=== PATIENT | female | born 1955 | race Caucasian/White ===

== ENCOUNTER 2017-11-27 11:30 | Outpatient (REF) | payer BC, OTHER, SELFPAY ==
[2017-11-27 21:53] LABS: TSH 1.77 uIU/mL (0.358-3.74)
== END 2017-11-27 11:50 ==
LOC: NCHCN 11:30
PROVIDERS: PCP Internal Medicine; Visit Provider Internal Medicine
DX: L65.9 Nonscarring hair loss, unspecified (principal); R53.83 Other fatigue
CPT/HCPCS: 84443

== ENCOUNTER 2018-03-26 15:41 | Emergency (ER) | payer BC, OTHER, SELFPAY ==
[2018-03-26 15:41] VITALS: BP 138/77; PULSE 97; RESP 16; TEMP 36.7; O2SAT 98
--- NOTE | 2018-03-26 15:45 | ED.GENADUL_ITS ---
Discharge Plan Disposition Patient Disposition: [facility] Condition: Stable Discharge Details Chief Complaint: Orthopedic Clinical Impression: Post-operative complication, Dehiscence of surgical wound Reason For Visit: MARTÍNEZ Primary Care Provider: Joseluis Clayton ED Provider: Bruno Mensah Home Meds and New Rx's Prescriptions: No Action Atorvastatin Calcium 20 MG tablet 20 mg PO DAILY RF: 0 cyclobenzaprine 10 MG tablet 10 mg PO TID RF: 0 venlafaxine 75 MG capsule,extended release 24hr 225 mg PO DAILY RF: 0 lisinopril 10 MG tablet 10 mg PO DAILY RF: 0 omeprazole 20 MG capsule,delayed release(DR/EC) 40 mg PO BID RF: 0 hydrochlorothiazide 25 MG tablet 25 mg PO DAILY RF: 0 mirtazapine 15 MG tablet,disintegrating 15 mg PO DAILY RF: 0 topiramate 50 MG tablet 50 mg PO DAILY RF: 0 omega-3 fatty acids-fish oil [Fish Oil] 1 EACH capsule 1 ea PO DAILY RF: 0 naproxen sodium 220 MG capsule 440 mg PO BID RF: 0 [id number]-lgq-trft-FA-vit K [Multi-Day Plus Minerals] 1 EACH tablet 1 ea PO DAILY RF: 0 Medical Decision Making This is a 62-year-old female who presents for dehiscence of her right knee after she had bilateral knee replacement. She is on Eliquis for DVT prophylaxis. This occurred roughly 1 hour prior to arrival. Upon arrival she demonstrates evidence of a 14 cm dehisced incision site in the right knee. No significant active bleeding at this time. Distally she demonstrates intact capillary refill, intact pulses intact sensation and movement. Tetanus is up-to-date, today we are giving 2 g of Ancef at this time. I did contact [facility] and discussed the case with the orthopedic surgeon Dr. Paniagua and the ER attending Dr. Batista, they recommend transfer to [facility] emergency department for further management as it was then who performed the case and they would like to maintain control of the case at this time. Portable x-ray shows no signs of severe fracture. Ancef has been given. Patient will be transferred by [facility] to [facility]. I have extensively reviewed the treatment plan with the patient. I have addressed all patient concerns at this time. I have also discussed the plan with the admitting physician and they agree with the current assessment and plan and have agreed to assume responsibility for the patient. All parties demonstrate verbal understanding and agreement with our assessment and plan at this time. HPI General Date/Time Provider Initiated Documentation: 03/26/18 15:43 . HPI Narrative: This is a 62-year-old female with a past medical history of high cholesterol, high blood pressure, who had a bilateral knee replacement on March 14 which was 12 days ago, this is done at [facility] by Dr. Bhardwaj and Dr. Serrato, she had been doing well, she was placed on Eliquis prophylactically for blood clots, unfortunately today she was walking and tripped and landed on her right knee. He had complete dehiscence of the knee. She immediately called 911 for evaluation. She is able to move the knee but does have some pain secondary to the dehiscence. Patient denies any pain proximally or distally. She denies any numbness or tingling. She denies any other complaints or modifying factors at this time. She did not hit her head. She had no loss of consciousness. Related Data Home Medications Medication Instructions Recorded Confirmed Atorvastatin Calcium 20 mg PO DAILY tab-cap 09/26/17 cyclobenzaprine 10 mg PO TID tab-cap 09/26/17 hydrochlorothiazide 25 mg PO DAILY tab-cap 09/26/17 lisinopril 10 mg PO DAILY tab-cap 09/26/17 mirtazapine 15 mg PO DAILY tab-cap 09/26/17 [id number]-dgj-[id number]-FA-vit K 1 ea PO DAILY 09/26/17 [Multi-Day Plus Minerals Tablet] naproxen sodium 440 mg PO BID 09/26/17 omega-3 fatty acids-fish oil [Fish 1 ea PO DAILY 09/26/17 Oil 1,000 Mg Capsule] omeprazole 40 mg PO BID tab-cap 09/26/17 topiramate 50 mg PO DAILY 09/26/17 venlafaxine 225 mg PO DAILY tab-cap 09/26/17 Allergies Allergy/AdvReac Type Severity Reaction Status Date / Time walnut Allergy Intermediate TONGUE Unverified 09/26/17 11:28 SWELLS acetaminophen [From Percocet] AdvReac Intermediate VOMITTING Unverified 09/26/17 11:28 oxycodone HCl [From Percocet] AdvReac Intermediate VOMITTING Unverified 09/26/17 11:28 DIAL SOAP AdvReac Mild Skin Rash Uncoded 09/26/17 11:28 Review of Systems Review of Systems All systems reviewed & are unremarkable except as noted in HPI and below Exam Narrative Exam Narrative: 1.Const: Well-nourished, Well-developed, appearing stated age 2.Eyes: PERRL, no conjunctival injection, and symmetrical lids. 3.ENT: Atraumatic external nose and ears. Moist MM. Neck: Symmetric, trachea midline, No thyromegaly. There is no evidence of raccoon eyes, blackman sign, CSF rhinorrhea, mastoid tenderness, cranial crepitus, hemotympanum, exophthalmos, or hyphema. Patient demonstrates intact dentition with no signs of tooth avulsion or fracture, no signs of jaw deformity, no evidence of a LeFort's fracture, with an intact palate, nose and orbital region. There is no evidence of a nasal septal hematoma. No proptosis. Jaw closes symmetrically. Airway is clear. 4.CVS: Regular rate and rhythm, Normal s1 and s2. No murmurs, carotid bruits, rubs, or gallops. Radial pulses 2+ bilaterally and symmetric. Dorsalis pedis pulses 2+ bilaterally and symmetric. 2+ capillary refill. No evidence of distant heart sounds. No extremity edema. No evidence of gross hemorrhage. 5.RESP: Airway clear, no obstructions. No abrasions or ecchymosis. Chest movement symmetric with respirations. No chest wall tenderness. Trachea midline. No crepitus. No step offs. No paradoxical movements. Lungs are clear to auscultation bilaterally. No rales, rhonchi, wheezing or stridor. Breath sound symmetric. No Sucking chest wounds. No clinical evidence of significant chest trauma. 6.GI: Soft, Nontender/Nondistended, No hepatosplenomegaly. No guarding or rebound. 7.MSK: Normocephalic left knee demonstrates postop incision site that is clean dry and intact, no evidence of dehiscence. No bleeding or discharge. No significant erythema. Right knee demonstrates total dehiscence of the incision. Dehisced lesion is 14 cm long and 6-4 cm wide. No evidence of active bleeding at this time. Mild oozing is present. Presence of artificial knee can be seen on exam. Distal pulses are +2 bilaterally, capillary refill is brisk in all toes. Patient demonstrates good flexion and extension of the knee, however it is slightly limited by pain. Good plantar and dorsiflexion of the right foot. 8.Skin: Warm, Dry. 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 Sensation grossly intact, no focal neurologic deficits. 10.Psych: (AAO) x3. Appropriate mood and affect
[2018-03-26] MEDS: MORPHine 10 MG/ML VIAL 4 MG IVP ×2 (16:04→16:53)
--- NOTE | 2018-03-26 16:04 | DI.RAD_ITS ---
SYMPTOM/DIAGNOSIS: ? FX PORTABLE RIGHT KNEE: AP and cross table lateral views were performed. The patient is status post placement of a right total knee prosthesis. The components appear well aligned. There is some anterior soft tissue swelling as well as residual post surgical air.
--- NOTE | 2018-03-26 16:19 | DI.VRAD_ITS ---
EXAM: XR Right Knee, 3 Views EXAM DATE/TIME: 03/26/2018 4:06 PM CLINICAL HISTORY: 62 years old, female; Signs and symptoms; Other: R/O FX; Prior surgery; Surgery date: 3-7 days post-operative; Surgery type: RT knee; Additional info: Fell in parking lot knee replacement on mar 14 TECHNIQUE: XR Right knee 3 views. COMPARISON: CR RIGHT KNEE 3 VIEWS 09/20/2017 12:33 PM FINDINGS: Bones/joints: Diffuse demineralization of the bones. Status post total knee arthroplasty. No evidence for loosening or fracture. Soft tissues: Postoperative changes in the soft tissue. IMPRESSION: Status post total knee arthroplasty with postoperative changes. Dictated and Authenticated by: Victor M Lala MD. Ordering:JOEY Carr MD
[2018-03-26] MEDS: Lactated Ringers 1,000 ML 125 ML IV (16:32)
[2018-03-26 16:45] VITALS: BP 147/81; PULSE 90; O2SAT 99
[2018-03-26 17:20] VITALS: BP 140/73; PULSE 98; RESP 16; TEMP 36.7; O2SAT 98
== END 2018-03-26 17:20 | disposition short-term general hospital (02) ==
LOC: ER 16:56
PROVIDERS: Emergency Provider Student in an Organized Health Care Education/Training Program; PCP Internal Medicine
DX: T81.31XA Disruption of external operation (surgical) wound, not elsewhere classified, initial encounter (principal); Z79.01 Long term (current) use of anticoagulants; Z96.651 Presence of right artificial knee joint; Z96.652 Presence of left artificial knee joint
CPT/HCPCS: 36415; 96361; 96365; 96375; 96376; 99285; 73560; 99284; J0690; J2270

== ENCOUNTER 2018-10-13 10:33 | Observation (INO) | payer MEDICARE, BC, OTHER, SELFPAY ==
[2018-10-13] VITALS (8 sets, daily range): BP systolic 92–151; BP diastolic 52–90; PULSE 73–85; RESP 8–17; TEMP 36–36.7; O2SAT 92–98
--- NOTE | 2018-10-13 10:54 | ED.GENADUL_ITS ---
Discharge Plan Disposition Patient Disposition: [facility] INPATIENT Condition: Stable Discharge Details Chief Complaint: Orthopedic Clinical Impression: Fracture subluxation of right ankle joint Admit Date/Time: 10/13/18 13:12 Admit Provider: Antonio Maciel Attending Provider: Antonio Maciel Primary Care Provider: Joseluis Clayton ED Provider: Stephenie Mueller Discharge Data Discharge Date/Time-TO BE ENTERED AT DEPARTURE: 10/13/18 14:55 Medical Decision Making 63-year-old female with a history of bilateral knee replacement with revision to right knee status post infection by Dr. Chaidez in [place] who presents with right ankle injury this morning when stepped into a ditch and inverted her ankle. She took Tylenol prior to arrival. She is neurovascular intact. There is moderate lateral malleolar edema and tenderness to palpation. No open wounds. No obvious deformity. Will give a dose of Motrin and sent for right ankle x-ray. Ankle x-ray notes a displaced fracture distal fibula with lateral subluxation of the talus with respect to the tibia. X-ray results discussed with Dr. Maciel. As patient ate at 830 this morning, will admit for possible planned surgery this evening. Screening labs, EKG and chest x-ray ordered. Patient accepted for admission by Dr. Maciel. Medical Records Medical records reviewed: Yes I reviewed the patient's medical records. Imaging Data Radiologic Study: Radiologist's impression: XR Right Ankle EXAM DATE/TIME: 10/13/2018 10:54 AM CLINICAL HISTORY: 63 years old, female; Pain; Right; Patient HX: S/P twisting ankle in ditch this morning. TECHNIQUE: Imaging protocol: XR Right ankle. Views: 3 or more views. COMPARISON: No relevant prior studies available. FINDINGS: Bones/joints: Displaced fracture in the distal fibula . Lateral subluxation of the talus with respect to the tibia. Soft tissues: Lateral malleolar soft tissue swelling. IMPRESSION: 1. Lateral malleolar soft tissue swelling. 2. Displaced fracture in the distal fibula. 3. Lateral subluxation of the talus with respect to the tibia Lab Data Lab results reviewed: Yes I reviewed the patient's lab results. ECG Data Attestation: I personally reviewed and interpreted this ECG (s) as follows: Interpretation: Rate of 73, sinus, no acute ST elevation or depression. QTc 430. QRS 78. HPI General Mode of arrival: wheelchair . Date/Time Provider Initiated Documentation: 10/13/18 10:53 . Limitations to Documentation: no limitations . Information obtained by: patient . HPI Narrative: Pt is a 63yo F who presents to the ED with complaint of right ankle injury after inverting her ankle when stepping into a hole while weeding today. She took Tylenol prior to arrival. She denies any injuries. She denies foot pain. Related Data Home Medications Medication Instructions Recorded Confirmed Atorvastatin Calcium 20 mg PO DAILY tab-cap 09/26/17 10/13/18 Fish Oil 1 ea PO DAILY 09/26/17 10/13/18 Multi-Day Plus Minerals 1 ea PO DAILY 09/26/17 10/13/18 cyclobenzaprine 10 mg PO .TID,PRN tab-cap 09/26/17 10/13/18 hydrochlorothiazide 25 mg PO DAILY tab-cap 09/26/17 10/13/18 lisinopril 10 mg PO DAILY tab-cap 09/26/17 10/13/18 naproxen sodium 440 mg PO BID 09/26/17 10/13/18 omeprazole 40 mg PO BID tab-cap 09/26/17 10/13/18 topiramate 50 mg PO DAILY 09/26/17 10/13/18 venlafaxine 225 mg PO DAILY tab-cap 09/26/17 10/13/18 hydrocodone-acetaminophen 1 tab PO Q6H PRN #20 tab 10/14/18 Previous Rx's Medication Instructions Recorded hydrocodone-acetaminophen 1 tab PO Q6H PRN #20 tab 10/14/18 Allergies Allergy/AdvReac Type Severity Reaction Status Date / Time walnut Allergy Intermediate TONGUE Unverified 10/13/18 10:46 SWELLS oxycodone HCl [From Percocet] AdvReac Intermediate VOMITTING Unverified 10/13/18 10:46 DIAL SOAP AdvReac Mild Skin Rash Uncoded 10/13/18 10:46 General Stated Complaint: Orthopedic CHRIS: 4 Review of Systems Review of Systems All systems reviewed & are unremarkable except as noted in HPI and below PFSH Medical History HTN (hypertension) (Chronic) Surgical History History of knee replacement (Chronic) Social History Smoking/Tobacco Use Status: Never Alcohol Intake: current Alcohol Intake frequency: holidays/special occasions only Alcohol type: hard liquor Drug use: Never Do you feel safe in your relationship?: Yes Exam Const General: cooperative, healthy appearing and no acute distress HENMT Head: normal to inspection Mouth: oral mucosae normal Eyes General: appearance normal, both eyes and all related structures Neck Neck: normal visual inspection Resp Effort & Inspection: normal respiratory effort and able to speak in complete sentences Cardio Rate: regular rate Skin General skin exam: no rashes or lesions noted Neuro General: alert, awake and oriented x3 Motor: muscle tone normal throughout Extrem Other: Right lateral malleolar tenderness to palpation and moderate edema. No right fifth metatarsal tenderness to palpation. Right DP/PT pulses intact. No tenderness to palpation of proximal fibula. Psych Appearance: grossly normal Affect: normal affect Course Vital Signs Temperature 97.5 F L 10/13/18 10:41 Pulse 85 10/13/18 10:41 Respiratory Rate 16 10/13/18 10:41 Blood Pressure 124/83 10/13/18 10:41 Pulse Oximetry 97 10/13/18 10:41 Temperature 97.5 F L 10/13/18 10:41 Temperature Source Skin 10/13/18 10:41 Pulse 85 10/13/18 10:41 Respiratory Rate 16 10/13/18 10:41 Respiratory Effort Non-Labored 10/13/18 10:44 Blood Pressure 124/83 10/13/18 10:41 Pulse Oximetry 97 10/13/18 10:41 Pain Level 1 10/13/18 10:41
[2018-10-13] MEDS: Acetaminophen 325 MG TAB 650 MG PO (10:57)
--- NOTE | 2018-10-13 11:33 | DI.RAD_ITS ---
SYMPTOM/DIAGNOSIS: S/P TWISTING INJURY IN DITCH, PAIN, PREOP, ANKLE FX FLUOROSCOPY RIGHT ANKLE: Fluoroscopy Time: 22.0 seconds Fluoroscopy was provided in the OR for Dr. Maciel. Hard copy images show placement of a lateral malleolar fixation plate and mortise screw. The alignment appears satisfactory. RIGHT ANKLE: There is marked lateral soft tissue swelling. There is a fracture seen extending obliquely through the lateral malleolus to the level of the ankle mortise. There is mild widening of the ankle mortise medially but no medial malleolar fracture. The talar dome appears intact. IMPRESSION: Lateral malleolar fracture and ankle mortise widening. AP AND LATERAL CHEST: The AP view is limited by patient body habitus and positioning. Abdominal soft tissues overlie the lung bases. There is minimal atelectasis or scarring at the right lung base anteriorly. No effusions are seen. IMPRESSION: No acute abnormality.
--- NOTE | 2018-10-13 11:54 | DI.VRAD_ITS ---
EXAM: XR Right Ankle EXAM DATE/TIME: 10/13/2018 10:54 AM CLINICAL HISTORY: 63 years old, female; Pain; Right; Patient HX: S/P twisting ankle in ditch this morning. TECHNIQUE: Imaging protocol: XR Right ankle. Views: 3 or more views. COMPARISON: No relevant prior studies available. FINDINGS: Bones/joints: Displaced fracture in the distal fibula . Lateral subluxation of the talus with respect to the tibia. Soft tissues: Lateral malleolar soft tissue swelling. IMPRESSION: 1. Lateral malleolar soft tissue swelling. 2. Displaced fracture in the distal fibula. 3. Lateral subluxation of the talus with respect to the tibia Dictated and Authenticated by: Richie Nam MD. Ordering:PATRIC Casiano MD
[2018-10-13] MEDS: Normal Saline 500 ML IV (13:37)
[2018-10-13] MEDS: MORPHine 10 MG/ML VIAL IVP ×2 (13:37→15:12)
--- NOTE | 2018-10-13 13:41 | NUR.NOTE ---
Nursing Note: Nurse grief counselor at bedside to discuss plan of care. Pt resting in stretcher, no signs of distress. facial expression and body language relaxed. slow and even respirations noted.
[2018-10-13 14:07] LABS: HCT 42.7 % (36.0-46.0); Mean Corp. HGB Concentration 32.8 g/dL (32.0-36.0); Mean Corpuscular Hemoglobin 27.9 pg (27.0-33.0); Mean Corpuscular Volume 85.2 fL (80-95); Mean Platelet Volume 8.8 fL (8.0-11.0); Platelet Count 235 x1000/uL (130-400); RBC 5.01 m/cumm (4.00-5.20); RBC Distribution Width 13.9 % (11.7-14.6); White Blood Cell Count 6.39 k/cumm (4.4-10.8)
[2018-10-13 14:16] LABS: Anion Gap 6.2 mmol/L (3-11); BUN 14 mg/dL (7-18); CO2 28.8 mmol/L (21.0-32.0); CREATININE 0.76 mg/dL (0.55-1.02); Calcium 8.5 mg/dL (8.5-10.1); Chloride 105 mmol/L (98-107); Glucose 90 mg/dL (70-100); Potassium 3.9 mmol/L (3.5-5.1); Sodium 140 mmol/L (136-145)
--- NOTE | 2018-10-13 14:43 | NUR.NOTE ---
Nursing Note:report given to Alyse FENG
--- NOTE | 2018-10-13 14:50 | NUR.NOTE ---
Nursing Note: Shorty splint applied to patient. Strong pedal pulse noted.
--- NOTE | 2018-10-13 14:54 | NUR.NOTE ---
Nursing Note: pt transported up stairs.
--- NOTE | 2018-10-13 15:02 | DI.VRAD_ITS ---
EXAM: XR Chest, 2 Views EXAM DATE/TIME: 10/13/2018 12:54 PM CLINICAL HISTORY: 63 years old, female; Other: RT ankle fracture, assess for disease, pre-op TECHNIQUE: Imaging protocol: XR of the chest, 2 views. COMPARISON: No relevant prior studies available. FINDINGS: Lungs: Opacity in the right base may represent atelectasis or pneumonia. Pleural space: Unremarkable. No pleural effusion. No pneumothorax. Heart/Mediastinum: Unremarkable. No cardiomegaly. Diaphragm: Elevated right hemidiaphragm Bones/joints: Unremarkable. IMPRESSION: Opacity in the right base may represent atelectasis or pneumonia. Dictated and Authenticated by: Richie Nam MD. Ordering:PATRIC Casiano MD
[2018-10-13] MEDS: Lactated Ringers 1,000 ML 200 ML IV ×2 (16:00→17:10)
--- NOTE | 2018-10-13 16:30 | NUR.NOTE ---
Nursing Note: Pt to floor from ER at 1456. A&Ox3, VSS. 1 assist to BR and stretcher. Pt requested splint to right ankle be removed; morphine 4mg IVP at 1520- 09/19 pain. at bedside. Pt oriented to MS floor, TV, call ash, etc. Call ash within reach. Pt to OR at 1543.
[2018-10-13] MEDS: Normal Saline 1,000 ML 125 ML IV (18:58)
[2018-10-13] MEDS: Ketorolac 30 MG/ML VIAL IVP (20:15)
[2018-10-13] MEDS: Docusate Sodium 100 MG CAP PO (20:45)
[2018-10-13] MEDS: Omeprazole 20 MG CAPCR 40 MG PO (20:45)
[2018-10-13] MEDS: ceFAZolin 2,000 MG in Normal Saline 100 ML 200 MG IVPB (22:58)
[2018-10-14 00:05] VITALS: BP 126/75; PULSE 99; RESP 19; TEMP 36.9; O2SAT 98
[2018-10-14] MEDS: Ketorolac 30 MG/ML VIAL IVP ×3 (00:53→11:56)
[2018-10-14] MEDS: ceFAZolin 2,000 MG in Normal Saline 100 ML 200 MG IVPB ×2 (04:14→10:33)
[2018-10-14 04:24] VITALS: BP 115/71; PULSE 82; RESP 18; TEMP 36.4; O2SAT 98
[2018-10-14] MEDS: Acetaminophen 325 MG TAB 650 MG PO ×2 (04:41→08:55)
[2018-10-14 07:55] VITALS: BP 120/72; PULSE 72; RESP 18; TEMP 36.9; O2SAT 99
[2018-10-14] MEDS: Topiramate 50 MG TAB PO (08:01)
[2018-10-14] MEDS: Docusate Sodium 100 MG CAP PO (08:01)
[2018-10-14] MEDS: hydroCHLOROthiazide 25 MG TAB PO (08:01)
[2018-10-14] MEDS: Omega-3 Fatty Acids 1000 MG CAP PO (08:01)
[2018-10-14] MEDS: Multivitamin TAB 1 TAB PO (08:01)
[2018-10-14] MEDS: Lisinopril 10 MG TAB PO (08:01)
[2018-10-14] MEDS: Omeprazole 20 MG CAPCR 40 MG PO (08:01)
[2018-10-14] MEDS: Atorvastatin 20 MG TAB PO (08:01)
[2018-10-14 08:03] VITALS: BP 120/72; PULSE 72; RESP 18; TEMP 36.9; O2SAT 99
[2018-10-14 08:28] VITALS: O2SAT 99
[2018-10-14] MEDS: Normal Saline 1,000 ML 60 ML IV (08:51)
--- NOTE | 2018-10-14 11:49 | W.PM.DS.N ---
Date of service: 10/14/18 Time of Service: 11:49 DS: Diagnosis Discharge Diagnosis (1) Trimalleolar fracture of right ankle: Status: Acute Discharge Plan Disposition Patient Disposition: HOME Condition: Stable Discharge Details Chief Complaint: Orthopedic Clinical Impression: Fracture subluxation of right ankle joint Reason For Visit: TRIMALLEOLAR FX R ANKLE Admit Date/Time: 10/13/18 13:12 Admit Provider: Antonio Maciel Attending Provider: Atnonio Maciel Primary Care Provider: Joseluis Clayton ED Provider: Stephenie Mueller Hospital Course Hospital Course: Patient was taken from the emergency room to the operating room on the day of admission 10/13/2018. I initially thought that she had a bimalleolar fracture equivalent. Using the C-arm fluoroscopy to visualize the ankle I determined that she had a trimalleolar fracture equivalent. This consisted of a rupture of the deltoid ligament fracture of the distal fibula proximal to the ankle joint and a small posterior malleolar fragment off the tibia. Posterior malleolar fragment is less than 10% of the articular surface of the distal tibia. The fracture was reduced anatomically and fixed with fibular plates and the syndesmotic screw through the plate. She was placed in a short leg Alexander dressing and a posterior fiberglass splint. She was comfortable through the night after surgery. On the day following surgery her pain was well controlled with occasional p.o. pain meds. She had already been up walking in the room with a walker. I felt she had achieved all acute care goals and was ready for discharge home. She was afebrile and eating well. Home Meds and New Rx's Prescriptions: New hydrocodone-acetaminophen 5-325 mg tablet 1 tab PO Q6H PRN (Reason: pain) Qty: 20 RF: 0 Continued Atorvastatin Calcium 20 MG tablet 20 mg PO DAILY RF: 0 cyclobenzaprine 10 MG tablet 10 mg PO .TID,PRN RF: 0 venlafaxine 75 MG capsule,extended release 24hr 225 mg PO DAILY RF: 0 lisinopril 10 MG tablet 10 mg PO DAILY RF: 0 omeprazole 20 MG capsule,delayed release(DR/EC) 40 mg PO BID RF: 0 hydrochlorothiazide 25 MG tablet 25 mg PO DAILY RF: 0 topiramate 50 MG tablet 50 mg PO DAILY RF: 0 Fish Oil 1 EACH capsule 1 ea PO DAILY RF: 0 naproxen sodium 220 MG capsule 440 mg PO BID RF: 0 Multi-Day Plus Minerals 1 EACH tablet 1 ea PO DAILY RF: 0 Discharge Instructions Additional Instructions: Elevate R ankle when sitting. Use walker to walk. Don't step on R foot. May rest splint on floor for balance when standing. Keep splint and dressings dry and intact until return. Return to 's office in 2 weeks. Take naprosyn or tylenol for mild pain. Take hydrocodone for breakthru pain, if needed. Referrals: Antonio Maciel MD [ [facility] STAFF PHYSICIAN] - (f/u in 2 weeks. Call office tomorrow to make appt. ([phone] Activity:: Activity as Tolerated Equipment/Supplies:: Walker Diet:: As Tolerated Discharge Orders Discharge Orders: Discharge Order (Routine); Ordered 10/14/18 Ordered By: Antonio Maciel DS: Data Vitals/I&O Vitals and I&O: Vital Signs Temperature 36.9 C 10/14/18 08:03 Temperature Source Tympanic 10/14/18 08:03 Pulse 72 10/14/18 08:03 Pulse Rhythm Regular 10/14/18 07:56 Respiratory Rate 18 10/14/18 08:03 Respiratory Effort Non-Labored 10/14/18 07:56 Respiratory Depth Normal 10/14/18 07:56 Respiratory Pattern Normal 10/14/18 07:56 Blood Pressure 120/72 10/14/18 08:03 Pulse Oximetry 99 10/14/18 08:28 Respiratory End-tidal CO2 34 10/13/18 18:45 Oxygen Delivery Method Room Air 10/14/18 08:28 Oxygen Flow Rate 0 10/14/18 08:28 Pain Level 3 10/14/18 08:55 Intake & Output 10/13/18 10/13/18 10/14/18 11:59 23:59 11:59 Intake Total 3028.333 / 3028.333 1091.667 / 1091.667 Output Total 720 / 720 800 / 800 Balance 2308.333 / 2308.333 291.667 / 291.667 Weight 90.718 kg 90.718 kg Intake: IV 3028.333 / 3028.333 691.667 / 691.667 Oral 400 / 400 Output: Urine 700 / 700 800 / 800 Estimated Blood Loss Other: Urine Color Yellow Yellow Urine Appearance Clear Clear Emesis Description None Voiding Methods Bedside Commode Bedside Commode Labs on day of discharge: Labs from last 24 hours 10/13/18 10/13/18 10/13/18 13:53 13:53 13:53 WBC 6.39 RBC 5.01 Hgb 14.0 Hct 42.7 MCV 85.2 MCH 27.9 MCHC 32.8 RDW 13.9 Plt Count 235 MPV 8.8 Sodium 140 Potassium 3.9 Chloride 105 Carbon Dioxide 28.8 Anion Gap 6.2 BUN 14 Creatinine 0.76 Estimated GFR/1.73 m2 >= 60.00 Glucose 90 Calcium 8.5 Patient ABO/Rh O Positive Antibody Screen Negative [facility] Medical History HTN (hypertension) (Chronic) Surgical History History of knee replacement (Chronic) Social History Smoking/Tobacco Use Status: Never Alcohol Intake: current Alcohol Intake frequency: holidays/special occasions only Alcohol type: hard liquor Drug use: Never Do you feel safe in your relationship?: Yes
[2018-10-14] MEDS: Normal Saline Flush 10 ML SYR IVP (11:56)
--- NOTE | 2018-10-15 10:17 | ROE_ITS ---
DATE OF PROCEDURE: October 13, 2018 PREOPERATIVE DIAGNOSIS: Bimalleolar fracture of the right ankle. POSTOPERATIVE DIAGNOSIS: Trimalleolar fracture equivalent, right ankle. PROCEDURE: ORIF of trimalleolar fracture equivalent, right ankle. ANESTHESIA: General, Yuniel Romero CRNA SURGEON: Antonio Maciel M.D. LEASING SALES CONSULTANT: Nesha Salinas INDICATIONS: This is a 63-year-old white female who stepped into a ditch in her garden when she sust ained an inversion injury to her ankle. She went to the Emergency Room where x-rays showed a fractur e of the distal fibula proximal to the ankle joint level with some medial joint space widening seen. The x-rays were really suboptimal and it was hard to see if there was a posterior malleolar fracture fragment. I felt that she did in fact have medial space narrowing and recommended open reduction an d internal fixation and optimum treatment to restore the ankle mortise joint. The risks and complica tions of the procedure were explained to the patient in detail preoperatively. PROCEDURE: The patient was taken to the Operating Room on 10/13/18. After an unsuccessful attempt at spinal anesthesia, it was decided to have a general anesthesia. The patient was placed supine on the operating table and a general anesthetic was administered. A proximal tourniquet was applied to the right thigh. I then put the leg on folded blankets and performed a gravity external stress to the a nkle. An AP view of the ankle was then obtained with the C-arm and it confirmed widening of the ankl e mortise. In addition, I rotated the ankle and got a true lateral of the ankle and it showed a smal l posterior malleolar fracture fragment off the tibia. It was felt that this was small enough that i t did not need fixation. At this point the right foot, ankle and lower leg were prepped and draped free in the usual sterile f ashion. Under proximal tourniquet control I made a short curved incision over the medial aspect of t he ankle joint. The incision was about three inches in length. The saphenous vein was identified an d was retracted medially. I made an incision in the anterior capsule and could clearly see the ankle mortise subluxed. I irrigated the joint with saline solution. No bony fragments were seen. Under direct vision I was able to reduce the talus, confirming that there was nothing blocking reduction on the medial side of the talus. Attention was then turned to the lateral side. A straight lateral incision was made beginning at the tip of the fibula and extending proximally abou t 6 to 7 inches. The incision was carried down through the skin and subcu, down to the fibula. The fracture site was identified. The edges of the main fracture line was with a [place] elevato r and then the fracture site itself was irrigated with saline solution and a small curette was used t o remove periosteum and fracture hematoma that could prevent reduction. I then was able to obtain an anatomic reduction using a self-centering towel clip applied from anterior to posterior. I then use d the C-arm to visualize the ankle. With the single self-centering towel clip in place, the ankle mo rtise was anatomically reduced, as was the fractured fibula. I then secured the fibular fracture wit h an 8-hole, one-third tubular plate. Locking screws were placed in the distal three holes in the pl ate. Non-locking 3.5 cortical screws were placed in the proximal three holes. I placed a 4-hole can cellous syndesmotic screw, tri-cortical, through the plate to further support the ankle mortise. An anatomic reduction was obtained. The wounds were then irrigated with Betadine and saline solution an d the wound margins were infiltrated with 0.25% Marcaine with an epinephrine solution. On the medial side, the capsular incision was approximated with a couple of interrupted gzywna-ez-tjsft sutures of #1 Vicryl suture material. The skin and subcu were approximated with uzmn-aym-qsq-near interrupted sutures of #3-0 Nylon. On the lateral side, the peroneal fascia was approximated over the plate and fibula with an interlocked, running #1 Vicryl suture. The skin and subcu were then approximated with out tension using ifjf-usa-pwi-near sutures of #3-0 Nylon interrupted. The wounds were dressed with Xeroform gauze, sterile gauze 4x4, ABD pads and wrapped with a Kerlix bandage. I then placed a short -leg Alexander compressive dressing. I followed that by placing a short-leg posterior fiberglass splint over the Alexander dressing, held down with TWAN bandages. The ankle was positioned in neutral dorsiflexi on. The tourniquet was released; there was no breakthrough bleeding to the dressings. Blood loss wa s minimal due to tourniquet use. The patient's anesthesia was reversed without complication. She wa s discharged to recovery in good condition.
== END 2018-10-14 12:51 | disposition home or self-care (01) ==
LOC: ER 13:25 → MS 15:05
PROVIDERS: Admitting Provider Orthopaedic Surgery; Emergency Provider Physician Assistant; PCP Internal Medicine; Visit Provider Orthopaedic Surgery
PROC: 0QSG0ZZ Reposition Right Tibia, Open Approach (ICD-10-PCS; CPT 27814; principal; 2018-10-13 14:35)
DX: S82.61XA Displaced fracture of lateral malleolus of right fibula, initial encounter for closed fracture (principal); S82.891A Other fracture of right lower leg, initial encounter for closed fracture; S93.421A Sprain of deltoid ligament of right ankle, initial encounter; X50.1XXA Overexertion from prolonged static or awkward postures, initial encounter
CPT/HCPCS: 27814; 27829; C1713; 36415; 80048; 85027; 86850; 86900; 86901; 96361; 96374; 96375; 99285; NC; 71046; 73600; 73610; 99284; G0378; J0690; J1100; J1885; J2250; J2270; J2405; J3010

== ENCOUNTER → 2018-10-30 09:11 | Outpatient (CLI) | payer MEDICARE, BC, OTHER, SELFPAY ==
--- NOTE | 2018-10-30 09:00 | DI.RAD_ITS ---
SYMPTOM/DIAGNOSIS: F/U RIGHT ANKLE: 10/30 Three views were obtained and show plate and screw fixation of the distal fibula with a femorotibial fixation screw in place as well. Alignment appears unchanged in comparison with intraoperative films of 10/13/18.
== END ==
PROVIDERS: PCP Internal Medicine; Referring Provider Internal Medicine; Visit Provider Orthopaedic Surgery
DX: S82.851A Displaced trimalleolar fracture of right lower leg, initial encounter for closed fracture (principal); X58.XXXA Exposure to other specified factors, initial encounter
CPT/HCPCS: L4361; 73610

== ENCOUNTER 2018-11-27 10:53 | Outpatient (CLI) | payer MEDICARE, BC, OTHER, SELFPAY ==
--- NOTE | 2018-11-27 09:16 | DI.RAD_ITS ---
EXAM: XR ANKLE RT COMPLETE INDICATION: F/U COMPARISON: XR ANKLE RT COMPLETE from 10/30/2018 TECHNIQUE: 2D digital imaging was performed. FINDINGS: Images of the right ankle are compared with a prior study of 10/30. There has been no change in the st atus of the orthopedic hardware fixation of the distal fibula. A right tibial fixation screw is aga in noted. IMPRESSION:
== END 2018-11-27 11:13 ==
PROVIDERS: PCP Internal Medicine; Visit Provider Orthopaedic Surgery
DX: S82.851A Displaced trimalleolar fracture of right lower leg, initial encounter for closed fracture (principal); X58.XXXA Exposure to other specified factors, initial encounter
CPT/HCPCS: 73610; L1902

== ENCOUNTER 2018-12-25 13:00 | Outpatient (CLI) | payer MEDICARE, BC, OTHER, SELFPAY ==
--- NOTE | 2018-12-25 10:07 | DI.RAD_ITS ---
EXAM: XR ANKLE RT COMPLETE INDICATION: f/u. COMPARISON: XR ANKLE RT COMPLETE from 11/27/2018 TECHNIQUE: 2D digital imaging was performed. FINDINGS: Three views were obtained and show plate and screw fixation of the distal fibula and tibial fibular j oint. The ankle mortise appears well maintained. No change in alignment in comparison with examinat ion November 27. IMPRESSION:
== END 2018-12-25 13:20 ==
PROVIDERS: PCP Internal Medicine; Referring Provider Internal Medicine; Visit Provider Orthopaedic Surgery
DX: S82.851D Displaced trimalleolar fracture of right lower leg, subsequent encounter for closed fracture with routine healing (principal); X58.XXXD Exposure to other specified factors, subsequent encounter
CPT/HCPCS: 73610

== ENCOUNTER 2019-10-20 14:09 | Emergency (ER) | payer MEDICARE, BC, OTHER, SELFPAY ==
--- NOTE | 2019-10-20 14:15 | DI.RAD_ITS ---
EXAM: XR ANKLE LT COMPLETE CLINICAL HISTORY: twist/fall TECHNIQUE: 2D digital imaging was performed. COMPARISON: No exams were available for comparison FINDINGS: BONES: Minimally displaced oblique fracture of the distal fibula. A nondisplaced posterior malleolar fracture cannot be excluded. No bony destructive lesion is seen. JOINTS:Mild widening of the medial ankle mortise. SOFT TISSUE: Soft tissue swelling of the ankle particularly laterally. IMPRESSION: 1. Distal fibular fracture as described. 2. Possible posterior malleolar fracture. 3. Mild lateral displacement of the ankle mortise. DATA REPOSITORY: RADIATION DOSE DELIVERED:
[2019-10-20 14:17] VITALS: BP 139/96; PULSE 92; RESP 18; TEMP 36.7; O2SAT 97
--- NOTE | 2019-10-20 14:22 | W.ED.GENAD ---
Discharge Plan Disposition Patient Disposition: HOME Condition: Stable Discharge Details Chief Complaint: Orthopedic Clinical Impression: Bimalleolar ankle fracture Primary Care Provider: Joseluis Clayton ED Provider: Ever Govea Home Meds and New Rx's Prescriptions: New hydrocodone-acetaminophen 5-325 mg tablet 1 tab PO Q8H PRNQty: 8 RF: 0 Continued Atorvastatin Calcium 20 MG tablet 20 mg PO DAILY RF: 0 cyclobenzaprine 10 MG tablet 10 mg PO .TID,PRN RF: 0 venlafaxine 75 MG capsule,extended release 24hr 225 mg PO DAILY RF: 0 lisinopril 10 MG tablet 10 mg PO DAILY RF: 0 omeprazole 20 MG capsule,delayed release(DR/EC) 40 mg PO BID RF: 0 hydrochlorothiazide 25 MG tablet 25 mg PO DAILY RF: 0 topiramate 50 MG tablet 50 mg PO DAILY RF: 0 Fish Oil 1 EACH capsule 1 ea PO DAILY RF: 0 Multi-Day Plus Minerals 1 EACH tablet 1 ea PO DAILY RF: 0 cholecalciferol (vitamin D3) [Vitamin D3] 25 mcg (1,000 unit) Capsule 25 mcg PO DAILY RF: 0 calcium carbonate-vitamin D3 [Calcium 500 With D] 500 mg(1,250mg) -400 unit Tablet 1 tab PO DAILY RF: 0 Discharge Instructions Instructions: Ankle Fracture (ED) Additional Instructions: Vicodin as directed, may cause drowsiness and/or constipation. Rest, elevate, cool compresses every 2 hours for 20 minutes. Wear postop shoe and use crutches until reevaluation with orthopedics, no weightbearing until then. Please watch for new or worsening symptoms and return to the ER for any concerns. I personally spoke with Dr. Ferrer who is aware of your case. Please contact his office tomorrow for prompt outpatient reevaluation. Referrals: Stephen Ferrer MD [ [facility] STAFF PHYSICIAN] - Discharge Data Discharge Date/Time-TO BE ENTERED AT DEPARTURE: 10/20/19 15:21 Medical Decision Making This is a 64-year-old female with history of hypertension, GERD, presenting to the ER today after having missed a step, stepping awkwardly off of her deck and twisting her left ankle. She reports the pain is moderate at rest, worse with attempting to move or bear weight, unable to bear weight completely. She reports that it feels like she sprained her right foot, does not want an x-ray of that foot. She did not strike her head, denies any other injury. There appears to be no distracting injuries. She appears well, no acute distress. Neuro, vascular, tendon intact. Will obtain x-ray of the left ankle and reassess. Patient has an allergy to Percocet, and can take Vicodin, 1 tablet given. X-ray of left ankle read by me as a distal fibula fracture, question of bimalleolar fracture. Awaiting official read. Virtual radiology read the x-ray as a left distal tibial fracture with what appeared to be a posterior malleolar fracture and mild mortise widening. I discussed the case and x-ray with Dr. Ferrer. He recommends immobilization, crutches, nonweightbearing, analgesia, and he will be happy to follow the patient in his office this week. Patient prefers a walking boot versus a Ortho-Glass posterior splint. Dr. Ferrer is okay with this. Walking boot applied, crutches with teaching given. Patient was able to safely use crutches. Neuro, vascular, tendon intact upon discharge. I did place the patient on the orthopedic callback list and gave the patient Dr. Ferrer's name and number so she could contact their office tomorrow for prompt outpatient reevaluation. Patient was educated in elevation, resting, cool compresses, the importance of outpatient follow-up, and encouraged to return to the ER for new or evolving symptoms. Upon discharge patient had no additional questions or concerns. Medical Records Medical records reviewed: Yes I reviewed the patient's medical records. Imaging Data Radiologic Study: Attestation: I personally reviewed and interpreted this imaging study as follows: Imaging: X-Ray Radiologist's impression: Left ankle x-ray read by virtual radiology has a distal fibular fracture and possible posterior malleolar fracture with mild lateral displacement of the ankle mortise HPI General Mode of arrival: ambulatory. Date/Time Provider Initiated Documentation: 10/20/19 14:21. Limitations to Documentation: no limitations. Information obtained by: patient. HPI Narrative: This is a 64-year-old female who reports a mechanical slip and fall coming off of her porch to the ground, stepped awkwardly twisting her left ankle and falling to the ground. She reports the pain is moderate. She is unable to bear weight on the left ankle. Reports mild pain of the right foot but able to bear weight. She denies striking her head, headache, neck pain, chest pain, pain in her upper extremities, abdominal pain, back pain, numbness, tingling, weakness. She is concerned that she may have broken her left ankle. Does not want an x-ray of her right foot. Related Data Home Medications Medication Instructions Recorded Confirmed Atorvastatin Calcium 20 mg PO DAILY tab-cap 09/26/17 10/20/19 Fish Oil 1 ea PO DAILY 09/26/17 10/20/19 Multi-Day Plus Minerals 1 ea PO DAILY 09/26/17 10/20/19 cyclobenzaprine 10 mg PO .TID,PRN tab-cap 09/26/17 10/20/19 hydrochlorothiazide 25 mg PO DAILY tab-cap 09/26/17 10/20/19 lisinopril 10 mg PO DAILY tab-cap 09/26/17 10/20/19 omeprazole 40 mg PO BID tab-cap 09/26/17 10/20/19 topiramate 50 mg PO DAILY 09/26/17 10/20/19 venlafaxine 225 mg PO DAILY tab-cap 09/26/17 10/20/19 calcium carbonate-vitamin D3 1 tab PO DAILY 10/20/19 10/20/19 [Calcium 500 With D] cholecalciferol (vitamin D3) 25 mcg PO DAILY 10/20/19 10/20/19 [Vitamin D3] hydrocodone-acetaminophen 1 tab PO Q8H PRN #8 tab 10/20/19 Previous Rx's Medication Instructions Recorded hydrocodone-acetaminophen 1 tab PO Q8H PRN #8 tab 10/20/19 Allergies Allergy/AdvReac Type Severity Reaction Status Date / Time walnut Allergy Intermediate TONGUE Verified 10/20/19 14:14 SWELLS oxycodone HCl [From Percocet] AdvReac Intermediate VOMITTING Verified 10/20/19 14:14 DIAL SOAP AdvReac Mild Skin Rash Uncoded 10/20/19 14:14 General Stated Complaint: Orthopedic CHRIS: 3 Review of Systems All systems reviewed & are unremarkable except as noted in HPI and below Constitutional Constitutional: Denies headache(s) and Denies weakness ENT Ears, Nose, Mouth, and Throat: Denies headache(s) and Denies neck pain Cardiovascular Cardiovascular: Denies chest pain and Denies dyspnea Respiratory Respiratory: Denies dyspnea Gastrointestinal Gastrointestinal: Denies nausea and Denies vomiting Musculoskeletal Musculoskeletal: Reports arthralgias, Reports joint swelling, Denies neck pain, Denies numbness and Denies tingling Integumentary/Breasts Skin/Breast: Denies rash Neurologic Neurologic: Denies headache(s), Denies numbness, Denies tingling and Denies weakness [facility] Medical History HTN (hypertension) (Chronic) Surgical History History of knee replacement (Chronic) Social History Smoking/Tobacco Use Status: Never Alcohol Intake: current Alcohol Intake frequency: holidays/special occasions only Alcohol type: hard liquor Drug use: Never Do you feel safe at home: Yes Do you feel safe in your relationship?: Yes Exam Const General: cooperative, healthy appearing, comfortable and no acute distress Orientation: alert, awake and oriented x3 HENMT Head: normal to inspection, normocephalic and atraumatic Face and sinus: normal facial exam Mouth: moist mucous membranes Eyes General: appearance normal, both eyes and all related structures Conjunctivae: conjunctivae normal Sclera: sclerae normal Neck Neck: normal visual inspection, full ROM, trachea midline, supple and nontender Resp Effort & Inspection: normal respiratory effort and able to speak in complete sentences Auscultation: clear to auscultation bilaterally Cardio Rate: regular rate Rhythm: regular rhythm Back/Spine/Pelvis Back: No back tenderness Skin General skin exam: no rashes or lesions noted Neuro General: patient alert, patient awake, moves all extremities and no focal motor deficits Cognition: normal cognition Speech: speech normal Motor: muscle tone normal throughout and strength 5/5 throughout Sensory Exam: no sensory deficits noted Extrem Right upper extremity: normal to inspection, full ROM and normal capillary refill Left upper extremity: normal to inspection, full ROM and normal capillary refill Right lower extremity: normal to inspection, full ROM, normal capillary refill and foot Details: normal capillary refill, normal to inspection and tenderness Location: of the dorsal foot (Mid-lateral, mild in nature. No bony point tenderness) Left lower extremity: normal capillary refill, hip/thigh Details: normal to inspection; no tenderness, knee Details: normal to inspection; no tenderness, lower leg Details: normal to inspection; no tenderness, ankle Details: abnormal to inspection, tenderness Location: of the lateral malleolus, swelling Details: laterally, abnormal ROM (Limited secondary to discomfort) and ecchymosis (Lateral malleolus) and foot Details: normal capillary refill and normal to inspection; no tenderness Psych Appearance: grossly normal Mental Status: mental status grossly normal Course Vital Signs Vital signs: Vital Signs Temperature 36.7 C 10/20/19 14:17 Pulse 92 H 10/20/19 14:17 Respiratory Rate 18 10/20/19 14:17 Blood Pressure 139/96 H 10/20/19 14:17 Pulse Oximetry 97 10/20/19 14:17 Temperature 36.7 C 10/20/19 14:17 Temperature Source Temporal Artery Scan 10/20/19 14:17 Pulse 92 H 10/20/19 14:17 Respiratory Rate 18 10/20/19 14:17 Blood Pressure 139/96 H 10/20/19 14:17 Blood Pressure Position Supine 10/20/19 14:17 Pulse Oximetry 97 10/20/19 14:17 Oxygen Delivery Method Room Air 10/20/19 14:17 Oxygen Flow Rate 0 10/20/19 14:17 Pain Level 5 10/20/19 14:17
--- NOTE | 2019-10-20 14:39 | DI.VRAD_ITS ---
PROCEDURE INFORMATION: Exam: XR Left Ankle Exam date and time: 10/20/2019 2:31 PM Age: 64 years old Clinical indication: Other: Twist/fall TECHNIQUE: Imaging protocol: XR Left ankle. Views: 3 or more views. COMPARISON: No relevant prior studies available. FINDINGS: Oblique fracture of the distal fibula with minimal displacement. Slight widening of the medial ankle mortise. Moderate lateral soft tissue swelling. Cannot exclude a nondisplaced posterior malleolar fracture. IMPRESSION: Distal fibular fracture and possible posterior malleolar fracture with mild lateral displacement of the ankle mortise. Dictated and Authenticated by: Rufino Olguin MD. Ordering:LESLIE Curtis MD
[2019-10-20] MEDS: HYDROcodone 5/Acetaminophen 325 TAB PO (15:11)
== END 2019-10-20 15:21 | disposition home or self-care (01) ==
PROVIDERS: Emergency Provider Physician Assistant; PCP Internal Medicine
DX: S82.842A Displaced bimalleolar fracture of left lower leg, initial encounter for closed fracture (principal); W10.8XXA Fall (on) (from) other stairs and steps, initial encounter; I10 Essential (primary) hypertension
CPT/HCPCS: 29515; 99284; 73610; E0114; L4361

== ENCOUNTER 2019-10-21 11:48 | Outpatient (CLI) | payer MEDICARE, BC, SELFPAY ==
--- NOTE | 2019-10-21 10:45 | DI.RAD_ITS ---
EXAM: XR TIB/FIB LT CLINICAL HISTORY: left ankle fracture. TECHNIQUE: 2D digital imaging was performed COMPARISON: CR,XR XR ANKLE LT COMPLETE from 10/20/2019 FINDINGS: BONES: There is a stable distal fibular fracture. No bony destructive lesion is seen. Patient has a little knee arthroplasty. No other fracture or dislocation is identified. SOFT TISSUE: There is soft tissue swelling about the ankle laterally. IMPRESSION: Stable distal fibular fracture. DATA REPOSITORY: RADIATION DOSE DELIVERED:
== END 2019-10-21 12:08 ==
PROVIDERS: PCP Internal Medicine; Referring Provider Internal Medicine; Visit Provider Student in an Organized Health Care Education/Training Program
DX: S82.832A Other fracture of upper and lower end of left fibula, initial encounter for closed fracture (principal); S82.842A Displaced bimalleolar fracture of left lower leg, initial encounter for closed fracture; W10.8XXA Fall (on) (from) other stairs and steps, initial encounter; I10 Essential (primary) hypertension
CPT/HCPCS: 99204; 99215; 73590

== ENCOUNTER 2019-10-22 07:43 | Outpatient (CLI) | payer MEDICARE, BC, SELFPAY ==
[2019-10-23 14:53] LABS: COVID-19 RT-PCR Result NEGATIVE (Negative)
== END 2019-10-22 08:03 ==
PROVIDERS: PCP Internal Medicine; Visit Provider Student in an Organized Health Care Education/Training Program
DX: S82.843A Displaced bimalleolar fracture of unspecified lower leg, initial encounter for closed fracture (principal); S82.851A Displaced trimalleolar fracture of right lower leg, initial encounter for closed fracture
CPT/HCPCS: U0003

== ENCOUNTER 2019-10-25 08:56 | Day surgery (SDC) | payer MEDICARE, BC, OTHER, SELFPAY ==
[2019-10-25] VITALS (8 sets, daily range): BP systolic 99–132; BP diastolic 77–97; PULSE 71–88; RESP 12–18; TEMP 36.3–36.6; O2SAT 93–100
[2019-10-25] MEDS: Lactated Ringers 1,000 ML 100 ML IV (09:46)
--- NOTE | 2019-10-25 10:45 | DI.RAD_ITS ---
EXAM: XR ANKLE LT 2V CLINICAL HISTORY: right ANKLE ORIF for fx TECHNIQUE: 2D and realtime digital imaging was performed. CONTRAST MATERIAL: Refer to procedure report. COMPARISON: CR,XR XR ANKLE LT COMPLETE from 10/20/2019 FINDINGS: Fluoroscopy was provided for Dr. Vyas during the performance of a open reduction and internal fixat ion of the distal tibial and fibular fractures.. Please refer to the procedure report for complete d etails. Fluoro time: 97.7 seconds IMPRESSION: RADIATION DOSE DELIVERED:
[2019-10-25] MEDS: Bupivacaine LIPOSOME/PF 133 MG/10 ML VIAL IJ (11:25)
[2019-10-25] MEDS: Normal Saline 10 ML VIAL IJ (11:25)
[2019-10-25] MEDS: Bupivacaine 0.5% Pres-Free 30 ML VIAL (11:25)
[2019-10-25] MEDS: ceFAZolin 3,000 MG in Normal Saline 100 ML 200 MG IVPB (11:43)
--- NOTE | 2019-10-25 14:42 | W.PM.DSUDISC ---
Discharge Plan Disposition Patient Disposition: HOME Condition: Stable Discharge Details Reason For Visit: Left ankle surgery Attending Provider: Thomas Vyas Primary Care Provider: Joseluis Clayton Home Meds and New Rx's Prescriptions: New naproxen 250 mg tablet 250 - 500 mg PO BID PRN (Reason: Moderate pain or swelling) Qty: 60 RF: 0 tramadol 50 mg Tablet 50 mg PO Q8H PRN PRN (Reason: severe pain) Qty: 12 RF: 0 aspirin 325 mg tablet,delayed release (DR/EC) 325 mg PO BID 30 Days Qty: 60 RF: 0 ondansetron 4 mg tablet,disintegrating 4 mg PO Q6H PRN (Reason: nausea or vomiting) Qty: 5 RF: 0 Continued acetaminophen 500 mg capsule 500 mg PO Q6H PRNRF: 0 Botox 100 unit recon soln 200 unit IM ONCE RF: 0 Atorvastatin Calcium 20 MG tablet 20 mg PO DAILY RF: 0 cyclobenzaprine 10 MG tablet 10 mg PO .TID,PRN RF: 0 venlafaxine 75 MG capsule,extended release 24hr 225 mg PO DAILY RF: 0 lisinopril 10 MG tablet 10 mg PO DAILY RF: 0 omeprazole 20 MG capsule,delayed release(DR/EC) 40 mg PO BID RF: 0 hydrochlorothiazide 25 MG tablet 25 mg PO DAILY RF: 0 topiramate 50 MG tablet 50 mg PO DAILY RF: 0 Multi-Day Plus Minerals 1 EACH tablet 1 ea PO DAILY RF: 0 mirtazapine 15 mg Tablet 15 mg PO QHS RF: 0 calcium carbonate-vitamin D3 [Calcium 500 With D] 500 mg(1,250mg) -400 unit Tablet 1 tab PO DAILY RF: 0 Discontinued celecoxib [Celebrex] 50 mg capsule 50 mg PO BID RF: 0 hydrocodone-acetaminophen 5-325 mg tablet 1 tab PO Q8H PRNQty: 8 RF: 0 Discharge Instructions Additional Instructions: Surgery: Left ankle ORIF Activity: Non-weightbearing with crutches in splint at all times. Recommend elevation to minimize swelling and discomfort. Perform gentle daily range of motion to all toes to reduce stiffness and encourage circulation. A physical therapy prescription will be provided separately in the office at follow-up if needed. Prescriptions: Aspirin 325 mg take 1 twice every day to prevent a blood clot for 30 days Naproxen 250 mg take 1-2 every 12 hours with a meal as needed for moderate pain Tramadol 50 mg take 1 every 6 hours as needed for severe pain You may use [id number] Tylenol (acetaminophen) as needed for mild pain. Ondansetron (Zofran) 4 mg take 1 orally dissolving tablet every 6 hours as needed for nausea or vomiting These pain medications may be taken all at once or in different combinations as needed. Also, recommend Colace (docusate) as a stool softener as surgery and pain medicine cause constipation. Dressings: Leave splint and dressing in place until follow-up. Keep clean and dry at all times. Follow-up: 10-[address] Vyas (11/06/19 at 11:15am). Please bring CAM boot to this appointment. Let us know right away if you develop any redness, drainage, fevers, chest pain, or trouble breathing. Do not drink alcohol or drive for at least 24 hours after anesthesia. Please call the office during business hours with any questions or concerns. Referrals: Thomas Vyas MD [ [facility] STAFF PHYSICIAN] - Shower/Bathe:: Cover Discharge Orders Discharge Orders: Discharge Order (Routine); Ordered 10/25/19 Ordered By: Thomas Vyas DS: Diagnosis Discharge Diagnosis (1) Bimalleolar ankle fracture: Status: Acute
--- NOTE | 2019-10-25 15:20 | W.PM.OP ---
Date of service: 10/25/19 Time of Service: 14:44 Operative Note Operative Note DATE OF PROCEDURE: 10/25/19 PRE-OP DIAGNOSIS: Bimalleolar ankle fracture POST-OP DIAGNOSIS: same PROCEDURE: Bimalleolar ankle fracture ORIF of lateral and posterior malleoli, CPT # 73088 SURGEON: Thomas Vyas INSULATION CUPOLA CHARGER: Philip Saucedo ANESTHESIA: GETA, regional and local ESTIMATED BLOOD LOSS: 15 TOURNIQUET TIME: 67 COMPLICATIONS: None Patient was transported to: PACU Patient's condition: stable Implants: Synthes 7-hole 1/3 tubular plate with 6x 3.5 mm cortex screws for fibula and 1x 4.0 mm partially threaded cancellous screw for posterior malleolus Indications: Please see complete medical record for details. Findings: Stable syndesmosis and ankle mortise post reduction and fixation of the lateral and posterior malleoli Procedure Description: In the operating room, general anesthesia was induced. The patient was positioned prone on the operating room table. All bony prominences were well-padded. A tourniquet was placed on the thigh over soft roll. Preoperative antibiotics were administered. The left ankle was prepped and draped in the usual sterile fashion. The correct patient, procedure, and side of the procedure were all verified prior to incision. A longitudinal incision was made between along the posterior margin of the fibula extending from the distal tip of the lateral malleolus a few centimeters proximally from the fracture site. Sharp dissection was carried down to the peroneal tendon sheath, which was retracted as a unit laterally. The posterior aspect of the fibula fracture was exposed and subperiosteally elevated proximally distally to accommodate plan plate fixation posteriorly. The ankle is rotated to gain access to the fibular fracture site which was cleaned out debris and then provisionally reduced and clamped using bone forceps and a nearly anatomic position. Next, the approach was carried deeply posteriorly and medially taking care to sharply incise the fascia over the FHL muscle belly was then carefully elevate subperiosteally from lateral to medially, but only as much as necessary to expose the posterior malleolus fracture margins. Interestingly, the periosteum for the posterior malleolus fracture fragment was relatively intact. The fracture was nondisplaced at the shoulder. However, a [place] could be placed between the posterior malleolus fragment and intact distal tibia confirming the fracture site and pattern. The decision was made to omit posterior plate fixation given the relatively small approximately 20% articular size of the fracture and integrity of surrounding soft tissue attachments. The PITFL ligament between the posterior malleolus fracture fragment and distal fibula was intact. Ankle manipulation could slightly rotate and move the posterior malleolus fragment. Given the question of medial clear space widening adjusting syndesmotic instability, I still proceeded with fixation of the posterior malleolus. Reduction was optimized through ligamentotaxis with reduced fibula out to length and the ankle held in dorsiflexion. Under direct visualization, a 3.5 mm drill was placed centrally towards the proximal margin of the fracture. Position and trajectory was confirmed under fluoroscopic guidance. The drill was advanced perpendicular the fracture directed toward the anteromedial distal tibia and stopped before the far cortex. C arm was used to confirm appropriate trajectory and depth. Lag by design was chosen to preserve relatively thin posterior malleolus bone stock and as such an appropriately lengthed 4.0 mm partially-threaded cancellus screw was inserted into the predrilled path and provisionally tightened securing the posterior malleolus fracture with excellent fixation. C-arm fluoroscopy used to confirm appropriate reduction with improvement of the slight posterior tubular margin impaction that had been visible and placement of the screw hardware prior to obscuring the posterior malleolus with distal fibula fixation. Screw was final tightened. Posterior malleolus no longer moved with ankle manipulation. Attention was then turned to posterior plating of the distal fibula. The peroneal tendons and their sheath were once again retracted laterally. An appropriated length plate was chosen allowing for 3 screws proximally distally to the fracture site with 1 hole omitted. The plate was held in place under the bone clamp and then adjusted to best fit the posterior cortex of the fibula. The distal tip of the plate was bent through the locking hole using a locking guide around the most posterior aspect of the distal fibula. A [place] was used to confirm appropriate bone margin around all aspects of the plate and no impingement of soft tissues or talus distally. The hole proximal to the fracture site was predrilled bicortically and then filled with appropriately lengthed 3.5 mm cortex screw. This was repeated for the hole distal to the fracture site and then continued proximally distally in an alternating fashion with care taken to direct the most distal screw away from the joint. All screws were final tightened. Final AP, lateral, and mortise fluoroscopy confirmed appropriate fracture reduction and hardware placement. Final external rotation stress views showed stable ankle mortise. The wound was copiously irrigated with normal saline. The tourniquet was let down and moist lap was held in the wound for a few minutes followed by removal with excellent hemostasis. 0 Vicryl was used to reapproximate the deep fascia in a daijvb-cm-wynsg fashion. Subcutaneous tissue was closed using 2-0 Monocryl in a buried interrupted fashion. The skin was closed using 3-0 nylon in horizontal mattress fashion. Xeroform was placed over the incision followed by dry 4 x 4 gauze, ABD pad, and sterile soft roll. Short leg splint was placed over the extremity taking care to maintain the foot and ankle in neutral position. The patient was rolled supine and awoke from anesthesia without complication and was transferred to the recovery room in a stable condition.
[2019-10-25] MEDS: traMADol 50 MG TAB PO (15:40)
== END 2019-10-25 16:25 | disposition home or self-care (01) ==
PROVIDERS: PCP Internal Medicine; Visit Provider Student in an Organized Health Care Education/Training Program
PROC: (CPT 27814; principal; 2019-10-25 11:00)
DX: S82.842A Displaced bimalleolar fracture of left lower leg, initial encounter for closed fracture (principal); G89.18 Other acute postprocedural pain; X50.0XXA Overexertion from strenuous movement or load, initial encounter; E66.9 Obesity, unspecified; I10 Essential (primary) hypertension
CPT/HCPCS: 27814; C1713; 76942; 73600; J0690; J1100; J2250; J2405; J2704

== ENCOUNTER 2019-11-06 14:40 | Outpatient (CLI) | payer MEDICARE, BC, OTHER, SELFPAY ==
--- NOTE | 2019-11-06 11:15 | DI.RAD_ITS ---
EXAM: XR ANKLE LT COMPLETE CLINICAL HISTORY: fu left ankle fracture TECHNIQUE: COMPARISON: CR,XR XR ANKLE LT COMPLETE from 10/20/2019 XR ANKLE LT 2V from 10/25/2019 FINDINGS: Three views were obtained. Note is again made of fixation of tibiofibular fracture fragments, no awilda ss interval change in alignment comparison with intraoperative films of October 24. The ankle morti se is well maintained. IMPRESSION: RADIATION DOSE DELIVERED: Total DLP
== END 2019-11-06 15:00 ==
PROVIDERS: PCP Internal Medicine; Referring Provider Internal Medicine; Visit Provider Student in an Organized Health Care Education/Training Program
DX: S82.842D Displaced bimalleolar fracture of left lower leg, subsequent encounter for closed fracture with routine healing; X58.XXXD Exposure to other specified factors, subsequent encounter
CPT/HCPCS: 73610

== ENCOUNTER 2019-12-04 10:55 | Outpatient (CLI) | payer MEDICARE, BC, OTHER, SELFPAY ==
--- NOTE | 2019-12-04 10:30 | DI.RAD_ITS ---
EXAM: XR ANKLE LT COMPLETE CLINICAL HISTORY: fu fracture. TECHNIQUE: 2D digital imaging was performed. COMPARISON: CR XR ANKLE LT COMPLETE from 11/06/2019 FINDINGS: BONES: There are stable post operative changes present. No new fracture or dislocation. JOINTS: The joint spaces are well maintained. No joint effusion is present. SOFT TISSUE: Normal. IMPRESSION: Stable postoperative changes. DATA REPOSITORY: RADIATION DOSE DELIVERED:
== END 2019-12-04 11:15 ==
PROVIDERS: PCP Internal Medicine; Referring Provider Internal Medicine; Visit Provider Student in an Organized Health Care Education/Training Program
DX: S82.892A Other fracture of left lower leg, initial encounter for closed fracture (principal); S82.842D Displaced bimalleolar fracture of left lower leg, subsequent encounter for closed fracture with routine healing; X58.XXXD Exposure to other specified factors, subsequent encounter
CPT/HCPCS: 73610

== ENCOUNTER 2020-01-14 18:28 | Outpatient (REF) | payer MEDICARE, BC, SELFPAY ==
[2020-01-14 21:23] LABS: Anion Gap 9.1 mmol/L (3-11); BUN 15 mg/dL (7-18); CO2 25.9 mmol/L (21.0-32.0); CREATININE 0.99 mg/dL (0.55-1.02); Calculated LDL 95 mg/dL (<100); Chloride 103 mmol/L (98-107); Cholesterol 181 mg/dL (<200); Estimated GFR 56.12 (mL/min/1.73m2); Glucose 89 mg/dL (74-106); HDL Cholesterol 53 mg/dL (40-60); Potassium 3.7 mmol/L (3.5-5.1); Sodium 138 mmol/L (136-145); Triglyceride 166 mg/dL (<150)
== END 2020-01-14 18:48 ==
LOC: NCHCN 18:28
PROVIDERS: PCP Internal Medicine; Visit Provider Internal Medicine
DX: I10 Essential (primary) hypertension (principal); E78.5 Hyperlipidemia, unspecified
CPT/HCPCS: 80048; 80061

== ENCOUNTER 2020-01-15 14:45 | Outpatient (CLI) | payer MEDICARE, BC, SELFPAY ==
--- NOTE | 2020-01-15 14:00 | DI.RAD_ITS ---
EXAM: XR ANKLE LT COMPLETE CLINICAL HISTORY: F/u. TECHNIQUE: 2D digital imaging was performed. COMPARISON: CR XR ANKLE LT COMPLETE from 12/04/2019 FINDINGS: BONES: There are stable post operative changes present. No new fracture or dislocation. JOINTS: The joint spaces are well maintained. No joint effusion is present. SOFT TISSUE: Normal. IMPRESSION: Stable postoperative changes. DATA REPOSITORY: RADIATION DOSE DELIVERED:
== END 2020-01-15 15:05 ==
PROVIDERS: PCP Internal Medicine; Visit Provider Student in an Organized Health Care Education/Training Program
DX: S82.852A Displaced trimalleolar fracture of left lower leg, initial encounter for closed fracture (principal); S82.842D Displaced bimalleolar fracture of left lower leg, subsequent encounter for closed fracture with routine healing; X58.XXXD Exposure to other specified factors, subsequent encounter; I10 Essential (primary) hypertension
CPT/HCPCS: 99213; 73610

== ENCOUNTER 2020-04-09 01:44 | Outpatient (CLI) | payer MEDICARE, BC, OTHER, SELFPAY ==
--- NOTE | 2020-04-09 | DI.DEXA_ITS ---
EXAM: XR DEXA BONE DENSITY W/WO FRANCISCO CLINICAL HISTORY: SCREENING FOR OSTEOPOROSIS IN POSTMENOPAUSAL WOMAN,Z78.0 TECHNIQUE: Routine DEXA evaluation of the lumbar spine, hip, or forearm. COMPARISON: Prior DEXA scan December 2011 FINDINGS: Performed on a [employer] unit. Lateral image: No compression fracture evident. Lumbar Spine total T-score: 0.0 . Prior 2011 reading was -0.6 Hip total T-score:0.0. Prior reading in 2012 was 0.2 Independent reading at the level of the femoral neck yields a T-score of -1 point Forearm total T-score: -1.6 IMPRESSION: Bone mineral density measures in the osteopenia range. Fracture risk is moderate. Note: Any spine fracture indicates 5x risk for subsequent spine fracture and 2x risk for subsequent h ip fracture. World Health Organization criteria for BMD interpretation classify patients: Normal...... T- Score at or above -1.0 Osteopenic... T- Score between -1.0 and -2.5 Osteoporosis... T-Score at or below -2.5
--- NOTE | 2020-04-09 15:20 | DI.MAMMO_ITS ---
EXAM: MG MAMMO SCREENING CLINICAL HISTORY: SCREENING, Z12.39. TECHNIQUE: Bilateral full field digital CC and MLO mammographic images were obtained with 3D tomosyn thesis and utilizing computer aided detection (CAD). COMPARISON: Prior mammograms dating back to 2013, the most recent being July 2017. FINDINGS: There are no CAD designations Benign-appearing nodule laterally in the right breast is unchanged from prior studies. In the In the left breast there is a 6 x 4 millimeter nodule located 4 centimetres in from the nipple on the CC view, more evident than on previous studies, this noncalcified nodule located approximately 6 o'c lock position. Ultrasound recommended. No other focal left breast findings. In the opposite-right breast there benign-appearing retroareolar densities which are probably slightly prominent ducts., un changed from prior studies. There are no malignant-appearing microcalcification groups in either abraham ast. There is no significant architectural distortion nor skin thickening-retraction. IMPRESSION: No radiographic evidence of malignancy in the right breast. New 6 x 4 millimeter well-defined noncalcified nodule in the left breast at approximately 6 o'clock p osition. Breast ultrasound recommended. BI-RADS Category 0 - Assessment Incomplete: Need additional imaging evaluation Breast Density - Category B - Scattered areas of fibroglandular density Breast density Category C or D implies that the patient has dense breast tissue. Dense breast tissue can make it harder to find cancer on a mammogram. Dense breast tissue is also associated with an incr eased risk of breast cancer. This information about the result of the mammogram report was provided to the patient to raise their awareness. Use this report when you speak with the patient about their risks for breast cancer, which includes their family history. At that time, you may recommend additional screening tests (Ultrasoun d or MRI) as these tests may add significant information. A negative radiographic report should not delay biopsy if a dominant or clinically suspicious mass is present. Up to ten percent of cancers are not identified on mammography. A negative report may reinforce clinical impression. Adenosis and dense breasts may obscure an underlying neoplasm. False positive reports average 6 to 10%. Patient will receive a letter notifying them of these results.
== END 2020-04-09 02:04 ==
PROVIDERS: PCP Internal Medicine; Visit Provider Internal Medicine
DX: Z12.31 Encounter for screening mammogram for malignant neoplasm of breast (principal); N63.25 Unspecified lump in the left breast, overlapping quadrants; M85.89 Other specified disorders of bone density and structure, multiple sites; Z78.0 Asymptomatic menopausal state
CPT/HCPCS: 77063; 77067; 77080

== ENCOUNTER 2020-04-13 02:16 | Outpatient (CLI) | payer MEDICARE, BC, OTHER, SELFPAY ==
--- NOTE | 2020-04-13 | DI.US_ITS ---
EXAM: US BREAST LT LIMITED CLINICAL HISTORY: F/U MAMMO, NEW LT BREAST NODULE,R92.8 TECHNIQUE: Ultrasound left breast performed using standard protocol. COMPARISON: Previous mammograms available for comparison. FINDINGS: There is a 0.5 x 0.4 x 0.7 cm hypoechoic nodule at the 12 o'clock position of the left breast 3 cm fr om the nipple. It appears to correspond to the mammographic abnormality. No posterior acoustic enha ncement or internal blood flow is seen sonographically. It does have somewhat irregular borders. IMPRESSION: 0.5 x 0.4 x 0.7 cm hypoechoic nodule at the 12 o'clock position of the left breast 3 cm from the nipp le. Biopsy is recommended. Findings were discussed with patient and their primary care physician on the date of the examination. BI-RADS Category 4 - Suspicious Abnormality: Biopsy should be considered DATA REPOSITORY:
== END 2020-04-13 02:36 ==
PROVIDERS: PCP Internal Medicine; Visit Provider Internal Medicine
DX: R92.8 Other abnormal and inconclusive findings on diagnostic imaging of breast (principal); N63.25 Unspecified lump in the left breast, overlapping quadrants
CPT/HCPCS: 76642

== ENCOUNTER 2020-04-22 02:17 | Outpatient (CLI) | payer MEDICARE, BC, OTHER, SELFPAY ==
--- NOTE | 2020-04-22 | DI.US_ITS ---
EXAM: US NEEDLE LOCAL BREAST WO RAD CLINICAL HISTORY: LT BREAST MASS, ULTRASOUND GUIDED BIOPSY. Right Breast. Left Breast. TECHNIQUE: The procedure was performed by Dr. Sands. Please see procedure note for details. FINDINGS: Images a again demonstrates nodule in the 12 o'clock position 3 cm from the nipple. COMPARISON: MG MG MAMMO SCREENING from 04/09/2020 MG MG MAMMO SCREENING from 04/09/2020 US US BREAST LT LIMITED from 04/13/2020 IMPRESSION: Ultrasound-guided Breast Biopsy.
--- NOTE | 2020-04-22 14:12 | BREAST_PTH ---
PATIENT: Rosenda Monahan LOC: [facility] U#:[id number] AGE/SX: 64/F ROOM: RE04/22/[address]: Jen Sands MD : [id number] BED: DIS: 04/22/2020 SPEC #: [id number] RECD: 04/22/20 17:41 STATUS: ISRRAEL REQ #: [id number] DARREN: 04/22/20 14:[address]: Jen Sands DEPT: Surgical Specimen RECD BY: Traci Balbuena ENTERED: 04/22/20 17:42 SP TYPE: Breast OTHR DR: Joseluis Clayton Tissues: 1 - BREAST BX NEEDLE Procedures: GROSS AND MICRO LEVEL 4 Comments: [id number]
--- NOTE | 2020-06-12 13:22 | W.PROCNOTE ---
Date of service: 05/20/20 Time of Service: 14:30 Procedure Note Date of procedure: 04/22/20 Procedure: US guided Left Breast Core needle biopsy Surgeon/Proceduralist/Physician: Jen Sands Procedure Indications: Mrs. Monahan is a pleasant 64 year old female who had an abnormal Mammogram. Follow up US showed a suspicious lesion in her left Breast. Risks, benefits and complications were reviewed with the patient. She wished to proceed. No guarantees were given or implied. Procedure Description: Pre-op Dx: Left Breast mass Post-op Dx: same Procedure: Left Breast US guided core needle biopsy Surgeon: Teressa Sands MD Anesthesia: 1% Lidocaine with epinephrine Blood loss: minimal Specimen: Core needle biopsy x2 of left Breast mass Complications: no immediate complications Procedure: After informed consent was obtained the patient was placed in a supine position. US was done of the left Breast and the lesion was localized by the US tech. The skin was cleaned with alcohol and infiltrated with the above local anesthetic. The skin was then prepped. An incision was made with an 11 blade. Using a 14 gauge core needle 2 specimens were removed and placed on telfa and placed in formalin. A titanium clip was then placed under US guidence into the lesion. The skin was cleaned and dried and a band aid was applied. The patient tolerated the procedure well and there were no immediate complications.
== END 2020-04-22 02:18 ==
LOC: DI 02:17
PROVIDERS: PCP Internal Medicine; Visit Provider Surgery
DX: R92.8 Other abnormal and inconclusive findings on diagnostic imaging of breast (principal); N60.12 Diffuse cystic mastopathy of left breast
CPT/HCPCS: 19083; 88305; 76942

== ENCOUNTER 2020-07-21 02:19 | Outpatient (CLI) | payer MEDICARE, BC, OTHER, SELFPAY ==
--- NOTE | 2020-07-21 09:47 | DI.MAMMO_ITS ---
Exam(s) MG MAMMO DIAGNOSTIC UNI EXAM: MAMMO DIAGNOSTIC UNI CLINICAL HISTORY: F/U LT BREAST NODULE, LT BREAST MASS TECHNIQUE: Mammograms were interpreted according to the usual protocol including computer analysis w [employer] CAD system, tomosynthesis and C-view imaging. COMPARISON: FINDINGS: Left breast mammogram was obtained today to re-evaluate a nodule identified ultrasound a graphically and mammographically and biopsied in April of this year. Note is again made of a 6 centrally loca lucy retroareolar nodule, unchanged in size, about 6 millimeters in greatest diameter, biopsy clip is seen approximately 8 millimeters anterior to the nodule. No significant change in appearance of the nodule in comparison with the prior examination of April 09. IMPRESSION: Stable central left breast nodule. Follow-up mammogram requested in March 2021. BI-RADS Category 3 - 6 month - Probably Benign Finding: Recommend follow-up mammography in 6 months Breast Density - Category B - Scattered areas of fibroglandular density
== END 2020-07-21 02:39 ==
PROVIDERS: PCP Internal Medicine; Visit Provider Surgery
DX: Z12.31 Encounter for screening mammogram for malignant neoplasm of breast (principal); R92.8 Other abnormal and inconclusive findings on diagnostic imaging of breast; N63.25 Unspecified lump in the left breast, overlapping quadrants
CPT/HCPCS: 77061; 77065; G0279

== ENCOUNTER → 2021-01-01 08:42 | Outpatient (BNVA) | payer MEDICARE, BC, OTHER, SELFPAY | PROVIDERS: PCP Internal Medicine; Referring Provider Internal Medicine; Visit Provider Physical Therapy Assistant | DX: Z12.11 Encounter for screening for malignant neoplasm of colon (principal) ==

== ENCOUNTER 2021-01-08 01:25 | Outpatient (CLI) | payer MEDICARE, BC, OTHER, SELFPAY ==
[2021-01-08 10:27] LABS: Source Nasal/Nares
[2021-01-08 13:32] LABS: COVID-19 PCR Negative (Negative)
== END 2021-01-08 01:26 | disposition home or self-care (01) ==
LOC: LBO 01:25
PROVIDERS: PCP Internal Medicine; Visit Provider Surgery
DX: Z20.822 Contact with and (suspected) exposure to COVID-19 (principal)
CPT/HCPCS: 87635

== ENCOUNTER 2021-01-11 08:46 | Day surgery (SDC) | payer MEDICARE, BC, OTHER, SELFPAY ==
--- NOTE | 2021-01-10 08:59 | ANES.PREOP_ITS ---
General Info Date of Service Date Performed: 01/11/21 Height: 5 ft 5 in Weight: 103.419 kg Body Mass Index (BMI): 37.9 Surgical Procedure: Operation Date: 01/11/21 09:50 Proposed Procedures Side Surgeon p Yolande Sands MD Meds Allergies and Home Medications Allergies Allergy/AdvReac Type Severity Reaction Status Date / Time walnut Allergy Intermediate TONGUE Verified 01/11/21 09:07 SWELLS erythromycin base Allergy Mild rash on Verified 01/11/21 09:07 forehead sulfamethoxazole Allergy Mild unknown Verified 01/11/21 09:07 [From Septra] trimethoprim [From Septra] Allergy Mild unknown Verified 01/11/21 09:07 triprolidine Allergy Mild unknown Verified 01/11/21 09:07 oxycodone HCl [From Percocet] AdvReac Intermediate VOMITTING Verified 01/11/21 09:07 DIAL SOAP AdvReac Mild Skin Rash Uncoded 01/11/21 09:07 Home Medication Medication Instructions Recorded Atorvastatin Calcium 20 mg PO DAILY tab-cap 09/26/17 Multi-Day Plus Minerals 1 ea PO DAILY 09/26/17 cyclobenzaprine 10 mg PO .TID,PRN tab-cap 09/26/17 hydrochlorothiazide 25 mg PO DAILY tab-cap 09/26/17 lisinopril 10 mg PO DAILY tab-cap 09/26/17 omeprazole 40 mg PO BID tab-cap 09/26/17 topiramate 50 mg PO DAILY 09/26/17 venlafaxine 225 mg PO DAILY tab-cap 09/26/17 calcium carbonate-vitamin D3 1 tab PO DAILY 10/20/19 [Calcium 500 With D] acetaminophen 500 mg capsule 500 mg PO Q6H PRN 10/21/19 onabotulinumtoxinA 100 unit 200 unit IM ONCE 10/21/19 solution for injection mirtazapine 15 mg PO QHS 10/25/19 alendronate 35 mg tablet 35 mg PO QWEEK 08/13/20 butalbital 50 mg-acetaminophen 300 1 cap PO Q4H PRN 08/13/20 mg-caffeine 40 mg-codeine 30 mg cap celecoxib 100 mg capsule 100 mg PO BID 08/13/20 bisacodyl 5 mg tablet,delayed 5 mg PO ONCE #4 tab 01/01/21 release polyethylene glycol 3350 17 238 g PO ONCE #238 g 10/22/21 gram/dose oral powder Current Visit Medications: Current Medications Generic Name Dose Route Start Last Admin Trade Name Vidya PRN Reason Stop Dose Admin Ringer's Solution 1,000 mls @ 80 mls/hr 01/11/21 06:00 IV 02/07/21 23:59 INFUSION AMILCAR IV Miscellaneous Supplies 1 each 01/11/21 06:00 Iv Access IV 02/07/21 23:59 DIRECTED AMILCAR Sodium Chloride 0 ml 01/11/21 06:00 Normal Saline Flush 10 Ml Syr IV 02/07/21 23:59 PRN PRN Sodium Chloride 0 ml 01/11/21 06:00 Normal Saline 10 Ml Vial IJ 02/07/21 23:59 DIRECTED PRN Sterile Water 0 ml 01/11/21 06:00 Water,Injection,Sterile 10 Ml Vial IJ 02/07/21 23:59 DIRECTED PRN PFSH Active Problems Active Problems: Problem Status Onset Code Trimalleolar fracture of right ankle S82.851A Breast lesion N64.9 Left breast mass N63.20 Obesity E66.9 Screening for colon cancer Z12.11 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 Medical History Medical History Depression Depression with anxiety GERD (gastroesophageal reflux disease) History of malignant melanoma of skin Horners syndrome HTN (hypertension) Hyperlipidemia Migraine Osteopenia with high risk of fracture Paraesophageal hernia Post-menopausal Ptosis of eyelid, bilateral Skin tag Urinary incontinence in female Surgical History Surgical History Gastric banding status History of ankle surgery bilateral History of cancer surgery melanoma removal on right wrist History of cholecystectomy History of hernia repair History of hysterectomy History of knee replacement x2-right L History of Glen fundoplication Status post breast reduction Tobacco Smoking/Tobacco Use Status: Never Alcohol Alcohol Intake: current Alcohol intake frequency: holidays/special occasions only Alcohol type: hard liquor Substance Use Substance use: Never Substance use type: does not use Vital Signs and Lab Results Vital Signs Most Recent Vital Signs in EMR: Temp Pulse Resp BP Pulse Ox 36.4 C L 88 18 135/97 H 98 01/11/21 09:00 01/11/21 09:00 01/11/21 09:00 01/11/21 09:00 01/11/21 09:00 Lab Results Blood Type / Crossmatch: No Data to Display Complete Blood Count: No Data to Display Complete Metabolic Panel: No Data to Display Liver Function Panel: No Data to Display Coagulation Panel: No Data to Display Cardiac Panel: No Data to Display Arterial Blood Gas: No Data to Display Venous Blood Gas: No Data to Display Pancreas Panel: No Data to Display Thyroid Panel: No Data to Display Infectious Disease: Coronavirus (COVID-19)(PCR) Negative (Negative) 01/08/21 08:44 01/08/21 Coronavirus 2019 Source Nasal/Nares 01/08/21 08:44 01/08/21 Blood Cultures: No Data to Display Toxicology Panel: No Data to Display Anesthesia Assessment and Plan Anesthesia History Personal History: No History of Anesthesia Complications Family History: No Family History of Anesthesia Complications Exercise Tolerance Exercise Tolerance: Metabolic Equivalents>4 Cardiac & Pulmonary Exam Cardiac Exam: Normal S1/S2 Heart Sounds Pulmonary Exam: Clear Bilateral Breath Sounds Airway Exam Known Difficult Airway: No Mallampati Class: 1 Mouth Opening: Normal (> 3cm) Thyromental Distance: Greater than 3 cm Neck Range of Motion: Full ROM Neck Circumference: Normal Teeth Condition: Normal Dentition ASA Classification ASA Score: ASA 2 Emergency Case?: No NPO Status NPO Status: NPO Clears >2 hours, Solids >8 hours Anesthesia Plan Resuscitation Status: Full Code Anesthesia Technique: General Anesthesia Airway Planned: Natural Airway Monitors Used: Standard Monitors Preoperative Comments:: 65 yo female for screening colo. last colo at [facility] [place], ~10 years ago. Sig PMHx: HTN (lisonopril/HCTZ), GERD (omep), migraine, paraesophageal hernia. gastric banding, hysterectomy, glen. never smoker, occ EtOH. Previous anes: glide 3 grade 1 easy mask. previous failed spinal attempted, house 2 grade 1.
--- NOTE | 2021-01-11 06:44 | COLE_ITS ---
Colonoscopy Report Date of procedure: 01/11/21 Pre-op diagnosis general: Colon Cancer Screening Post-op diagnosis procedure note: other (polyps and internal hemorrhoids) Procedure: Colonoscopy with polypectomy Surgeon: Jen Sands Anesthesia Type: General:No Airway (Elie Tavears CRNA) Estimated blood loss (mL): 3 Pathology: other (Ascending polyp and rectal polyps) Complications: None Disposition: same day Indications: Mrs Monahan is here to see me today to discuss a screening colonoscopy. Her last colonoscopy was 10 to 12 years ago and was normal. We discussed the procedure as well as the anesthetic to be used. The patient states that when she had her colonoscopy done at [facility] she was mostly awake throughout the whole procedure and definitely would like to be a little bit more sedated at this time. I did tell her that for the most part patients are in a deep sedation there are times when anesthesia does need to lighten the sedation if the patient's decide to stop breathing. She understands this. We discussed the procedure, risks and benefits. We also discussed Covid testing. She will hold her lisinopril and hydrochlorothiazide the morning of the procedure. Risks, benefits and complications have been reviewed. Complications include but are not limited to bleeding, pain, perforation, missed small lesion/polyp, sore throat, aspiration and adverse reaction to the medications. Questions were entertained and answered to their satisfaction and they wished to proceed. No guarantees were given or implied. Prep: Miralax/Dulcolax Procedure Start Time: 10:07 Procedure End Time: 10:41 Retraction Time: 19 minutes Findings: 3 small polyps Grade 1 internal hemorrhoids Procedure Description: After informed consent was obtained the patient was taken to the procedure room and placed in a left decubitous position. Monitors were applied and a time out was done. The patients name, date of , procedure, allergies to medications and metal in their body was reviewed. The patient was then sedated. Once sedated and comfortable a rectal exam was done. External exam was normal. Internal exam revealed a normal sphincter tone and no palpable masses. The scope was then introduced and retro-flexed. Grade 1 internal hemorrhoids were noted. No polyps or masses were identified on retro-flexion. The scope was then advanced to the cecum without difficulty. The ileocecal vlave and appendiceal orifice were identified. The prep was good. The scope was then slowly retracted over 19 minutes back into the rectum. Polyps were removed with cold forceps in the ascending colon and rectum x2. There was no diverticulosis noted. The scope was removed and the patient was woken up and taken back to Same day surgery in stable condition. The patient tolerated the procedure well and there were no immediate complications. Follow up: The patient should follow up in 5-10 years unless they develop changes in bowel habits or other new gastrointestinal complaints.
--- NOTE | 2021-01-11 06:44 | PDOC.DSDIS_ITS ---
Discharge Plan Disposition Patient Disposition: HOME Condition: Good Discharge Details Reason For Visit: Colonoscopy Attending Provider: Jen Sands Primary Care Provider: Joseluis Clayton Home Meds and New Rx's Prescriptions: Continued acetaminophen 500 mg capsule 500 mg PO Q6H PRNRF: 0 Botox 100 unit recon soln 200 unit IM ONCE RF: 0 Atorvastatin Calcium 20 MG tablet 20 mg PO DAILY RF: 0 cyclobenzaprine 10 MG tablet 10 mg PO .TID,PRN RF: 0 venlafaxine 75 MG capsule,extended release 24hr 225 mg PO DAILY RF: 0 lisinopril 10 MG tablet 10 mg PO DAILY RF: 0 omeprazole 20 MG capsule,delayed release(DR/EC) 40 mg PO BID RF: 0 hydrochlorothiazide 25 MG tablet 25 mg PO DAILY RF: 0 topiramate 50 MG tablet 50 mg PO DAILY RF: 0 Multi-Day Plus Minerals 1 EACH tablet 1 ea PO DAILY RF: 0 alendronate 35 mg tablet 35 mg PO QWEEK RF: 0 celecoxib 100 mg capsule 100 mg PO BID RF: 0 uhtxezzwca-rydyapyyhp-qzw-cod [id number] mg capsule 1 cap PO Q4H PRNRF: 0 mirtazapine 15 mg Tablet 15 mg PO QHS RF: 0 calcium carbonate-vitamin D3 [Calcium 500 With D] 500 mg(1,250mg) -400 unit Tablet 1 tab PO DAILY RF: 0 Discontinued polyethylene glycol 3350 17 gram/dose powder 238 g PO ONCE Qty: 238 RF: 0 bisacodyl [Dulcolax (bisacodyl)] 5 mg tablet,delayed release (DR/EC) 5 mg PO ONCE Qty: 4 RF: 0 Discharge Instructions Instructions: Hemorrhoids (DC), Colorectal Polyps (DC) Additional Instructions: Findings: polyps internal hemorrhoids Follow up: 5 years Please call if you develop: fevers >101.5 Nausea or Vomiting Abdominal pain that is not transient Rectal bleeding that is more then a tbsp A hard abdomen and inability to pass gas DAY SURGERY UNIT POST ENDOSCOPY INSTRUCTIONS Instructions for everyone who is given Anesthesia: For your safety, please do the following for the next 24 Hours: a. Do not drive or operate dangerous equipment b. Do not drink alcohol beverages or use any recreational drugs for the first 24 hours or while taking pain medications. The medications in your body may have a reaction that can be dangerous. c. Do not make any important decisions or sign any important papers 1. Generally there are no restrictions on your activity after a day or so has go ne by, but you may feel a bit fatigued for a few days. 2. After you arrive home you may have a light meal and return to a normal diet as you can tolerate it without feeling sick to your stomach. 3. After surgery, you may feel pain or discomfort. This should be only transient, but if it persists please contact your doctor. 4. If there are any questions regarding the findings of your procedure, please feel free to contact your doctor. 6. If you are unable to contact your doctor with a problem, contact the hospital at [phone]. 7. Continue all your regular medications unless directed otherwise. I understand the above instructions and have no questions. Signature of Patient or Responsible Adult Escort Date/Time Name of Responsible Adult Escort Signature of Nurse Date/Time Activity:: Activity as Tolerated Diet:: As Tolerated Discharge Orders Discharge Orders: Discharge Order (Routine); Ordered 01/11/21 Ordered By: Jen Sands
[2021-01-11 09:00] VITALS: BP 135/97; PULSE 88; RESP 18; TEMP 36.4; O2SAT 98
[2021-01-11] MEDS: Lactated Ringers 1,000 ML 80 ML IV (09:24)
[2021-01-11 09:58] VITALS: BMI 37.9
--- NOTE | 2021-01-11 10:27 | BOWEL_PTH ---
PATIENT: Rosenda Monahan LOC: [facility] U#:[id number] AGE/SX: 65/F ROOM: RE01/11/[address]: Jen Sands MD : [id number] BED: DIS: 01/11/2021 SPEC #: [id number] RECD: 01/11/21 12:42 STATUS: ISRRAEL REQ #: [id number] DARREN: 01/11/21 10:[address]: Jen Sands DEPT: Surgical Specimen RECD BY: Traci Balbuena ENTERED: 01/11/21 12:43 SP TYPE: Bowel OTHR DR: Joseluis Clayton Tissues: 1 - BIOPSY BOWEL 2 - BIOPSY BOWEL Procedures: GROSS AND MICRO LEVEL 4 Comments: [id number]
[2021-01-11 10:50] VITALS: BP 83/56; PULSE 75; RESP 16; TEMP 36.3; O2SAT 96
[2021-01-11 11:10] VITALS: BP 112/71; PULSE 67; RESP 16; TEMP 36.1; O2SAT 100
--- NOTE | 2021-01-11 11:21 | W.ANESPOSTOP ---
Postoperative Evaluation Date, Time and Location Date Performed: 01/11/21 Time Performed: : Patient Location: Day Surgery Unit Vital Signs Most Recent Imported Vital Signs: Most Recent Vital Signs Temp Pulse Resp BP Pulse Ox 36.3 C L 75 16 83/56 L 96 01/11/21 10:50 01/11/21 10:50 01/11/21 10:50 01/11/21 10:50 01/11/21 10:50 Pain Score Most Recent Pain Score: Most Recent Pain Score Pain Level 0 01/11/21 10:50 Assessment Mental Status: Awake (Alert & Oriented to Patient Baseline) Airway and Respiratory Function: Patent airway with normal (patient baseline) respiratory exam Cardiovascular Function: Hemodynamically Stable Hydration Status: Adequately Hydrated Nausea & Vomiting: No Nausea or Vomiting Pain: Pt. Denies Any Pain Peripheral Nerve Block: Patient did not receive a nerve block
== END 2021-01-11 11:51 | disposition home or self-care (01) ==
LOC: SUR 08:47
PROVIDERS: PCP Internal Medicine; Visit Provider Surgery
PROC: 0DJD8ZZ Inspection of Lower Intestinal Tract, Via Natural or Artificial Opening Endoscopic (ICD-10-PCS; CPT 45378; principal; 2021-01-11 09:45)
DX: Z12.11 Encounter for screening for malignant neoplasm of colon (principal); D12.3 Benign neoplasm of transverse colon; D12.8 Benign neoplasm of rectum; K64.8 Other hemorrhoids; I10 Essential (primary) hypertension
CPT/HCPCS: 45380; 88305; J2001

== ENCOUNTER → 2021-02-02 08:36 | Outpatient (BNVA) | payer MEDICARE, BC, OTHER, SELFPAY | PROVIDERS: PCP Internal Medicine; Referring Provider Internal Medicine; Visit Provider Surgery | DX: N63.20 Unspecified lump in the left breast, unspecified quadrant (principal) | CPT/HCPCS: 99212; 99213 ==

== ENCOUNTER 2021-02-12 11:15 | Outpatient (REF) | payer MEDICARE, BC, OTHER, SELFPAY ==
[2021-02-12 14:59] LABS: ALT 38 U/L (14-59); AST 22 U/L (15-37); Albumin 3.9 g/dL (3.4-5.0); Alkaline Phosphatase 104 U/L (46-116); Anion Gap 10.3 mmol/L (3-11); BUN 13 mg/dL (7-18); Bilirubin, Total 0.3 mg/dL (0.2-1.0); CO2 26.7 mmol/L (21.0-32.0); CREATININE 0.9 mg/dL (0.55-1.02); Calcium 8.8 mg/dL (8.5-10.1); Chloride 103 mmol/L (98-107); Glucose 121 mg/dL (74-106); Potassium 4.1 mmol/L (3.5-5.1); Sodium 140 mmol/L (136-145); Total Protein 6.8 g/dL (6.4-8.2)
[2021-02-15 10:51] LABS: HIV-1/2 Ag & Ab Screen Negative (Negative)
[2021-02-15 10:56] LABS: Hepatitis C Ab w Rflx HCV PCR Negative (Negative)
== END 2021-02-12 11:16 | disposition home or self-care (01) ==
LOC: NCHCN 11:15
PROVIDERS: PCP Internal Medicine; Visit Provider Family Medicine
DX: Z11.4 Encounter for screening for human immunodeficiency virus [HIV] (principal); Z11.59 Encounter for screening for other viral diseases; I10 Essential (primary) hypertension
CPT/HCPCS: 80053; 86803; 87389

== ENCOUNTER 2021-02-19 13:51 | Outpatient (REF) | payer MEDICARE, BC, OTHER, SELFPAY ==
[2021-02-20 18:15] LABS: COVID-19 RT-PCR UVMMC Result Negative (Negative)
== END 2021-02-19 13:52 | disposition home or self-care (01) ==
LOC: NCHCN 13:51
PROVIDERS: PCP Family Medicine; Visit Provider Family Medicine
DX: Z20.822 Contact with and (suspected) exposure to COVID-19 (principal)
CPT/HCPCS: U0003; U0005

== ENCOUNTER 2021-03-22 03:22 | Outpatient (CLI) | payer MEDICARE, OTHER, SELFPAY ==
[2021-03-22 10:33] LABS: Source Nasal/Nares
[2021-03-22 15:12] LABS: COVID-19 PCR Negative (Negative)
== END 2021-03-22 03:23 | disposition home or self-care (01) ==
LOC: LBO 03:22
PROVIDERS: PCP Family Medicine; Visit Provider Surgery
DX: Z20.822 Contact with and (suspected) exposure to COVID-19 (principal)
CPT/HCPCS: 87635

== ENCOUNTER 2021-03-24 12:18 | Day surgery (SDC) | payer MEDICARE, OTHER, SELFPAY ==
--- NOTE | 2021-03-24 | DI.MAMMO_ITS ---
Exam(s) MG MAMMO SPECIMEN EXAM: MG MAMMO SPECIMEN CLINICAL HISTORY: LT BREAST BIOPSY IN OR,. TECHNIQUE: Single specimen radiograph is submitted for interpretation. COMPARISON: Relevant prior examinations were reviewed. Also discussed with Dr. Sands FINDINGS: The single core biopsy ses min radiograph reveals the previously placed biopsy marker clip as well as the localization wire. There is a mildly spiculated density in the region of the wire hook. Also s uggestion of a possible subtle less spiculated density immediately adjacent to the distal aspect of t he wire. Findings discussed by phone with Dr. Sands (in the operating room). Impression: As above.
--- NOTE | 2021-03-24 | DI.US_ITS ---
Exam(s) US NEEDLE LOCAL BREAST WO RAD EXAM: US NEEDLE LOCAL BREAST WO RAD CLINICAL HISTORY: LT BREAST NODULE, ULTRASOUND GUIDED NEEDLE LOCALIZATION. Right Breast. Left Antonia ast. TECHNIQUE: Ultrasound guidance was provided during preoperative needle localization performed by the surgeon. The radiologist was not present for this procedure. COMPARISON: US US NEEDLE LOCAL BREAST WO RAD from 04/22/2020 FINDINGS: Submitted images reveal the nodule of concern in the left breast at 12 o'clock position. This appear s to correspond to the nodule which was targeted during ultrasound biopsy performed 04/22/2020. IMPRESSION: As above.
--- NOTE | 2021-03-24 09:44 | W.ANESPRE ---
General Info Date of Service Date Performed: 03/24/21 Height: 5 ft 5 in Weight: 102.285 kg Body Mass Index (BMI): 37.5 Surgical Procedure: Operation Date: 03/24/21 14:10 Proposed Procedures Side Surgeon p Biopsy Breast Needle Loc. Left Jen Sands MD Meds Allergies and Home Medications Allergies Allergy/AdvReac Type Severity Reaction Status Date / Time walnut Allergy Intermediate TONGUE Verified 03/24/21 12:44 SWELLS erythromycin base Allergy Mild rash on Verified 03/24/21 12:44 forehead sulfamethoxazole Allergy Mild unknown Verified 03/24/21 12:44 [From Septra] trimethoprim [From Septra] Allergy Mild unknown Verified 03/24/21 12:44 triprolidine Allergy Mild unknown Verified 03/24/21 12:44 oxycodone HCl [From Percocet] AdvReac Intermediate VOMITTING Verified 03/24/21 12:44 DIAL SOAP AdvReac Mild Skin Rash Uncoded 03/24/21 12:44 Home Medication Medication Instructions Recorded Atorvastatin Calcium 20 mg PO DAILY tab-cap 09/26/17 Multi-Day Plus Minerals 1 ea PO DAILY 09/26/17 cyclobenzaprine 10 mg PO .TID,PRN tab-cap 09/26/17 hydrochlorothiazide 25 mg PO DAILY tab-cap 09/26/17 lisinopril 10 mg PO DAILY tab-cap 09/26/17 omeprazole 40 mg PO BID tab-cap 09/26/17 topiramate 50 mg PO DAILY 09/26/17 venlafaxine 225 mg PO DAILY tab-cap 09/26/17 calcium carbonate-vitamin D3 1 tab PO DAILY 10/20/19 [Calcium 500 With D] acetaminophen 500 mg capsule 500 mg PO Q6H PRN 10/21/19 onabotulinumtoxinA 100 unit 200 unit IM ONCE 10/21/19 solution for injection mirtazapine 15 mg PO QHS 10/25/19 alendronate 35 mg tablet 35 mg PO QWEEK 08/13/20 butalbital 50 mg-acetaminophen 300 1 cap PO Q4H PRN 08/13/20 mg-caffeine 40 mg-codeine 30 mg cap celecoxib 100 mg capsule 100 mg PO BID 08/13/20 Current Visit Medications: Current Medications Generic Name Dose Route Start Last Admin Trade Name Freq PRN Reason Stop Dose Admin Ringer's Solution 1,000 mls @ 80 mls/hr 03/24/21 06:00 IV 04/22/21 23:59 [facility]ION [facility] IV Miscellaneous Supplies 1 each 03/24/21 06:00 Iv Access IV 04/22/21 23:59 DIRECTED AMILCAR Sodium Chloride 0 ml 03/24/21 06:00 Normal Saline Flush 10 Ml Syr IV 04/22/21 23:59 PRN PRN Sodium Chloride 0 ml 03/24/21 06:00 Normal Saline 10 Ml Vial IJ 04/22/21 23:59 DIRECTED PRN Sterile Water 0 ml 03/24/21 06:00 Water,Injection,Sterile 10 Ml Vial IJ 04/22/21 23:59 DIRECTED PRN PFSH Active Problems Active Problems: Problem Status Onset Code Chronic migraine without aura, intractable, with status migrainosus G43.711 Breast lesion N64.9 Left breast mass N63.20 Obesity E66.9 Screening for colon cancer Z12.11 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 Medical History Medical History Chronic migraine Depression Depression with anxiety GERD (gastroesophageal reflux disease) History of malignant melanoma of skin HTN (hypertension) Hyperlipidemia Hyperplastic colon polyp Migraine Osteopenia with high risk of fracture Paraesophageal hernia Post-menopausal Ptosis of eyelid, bilateral Serrated adenoma of colon Skin tag Trimalleolar fracture of right ankle Tubular adenoma of colon Urinary incontinence in female Surgical History Surgical History Gastric banding status History of ankle surgery bilateral History of cancer surgery melanoma removal on right wrist History of cholecystectomy History of colonoscopy 12/2020 History of hernia repair History of hysterectomy History of knee replacement x2-right L History of Glen fundoplication Status post breast reduction Tobacco Smoking/Tobacco Use Status: Never Alcohol Alcohol Intake: current Alcohol intake frequency: holidays/special occasions only Alcohol type: hard liquor Substance Use Substance use: Never Substance use type: does not use Vital Signs and Lab Results Vital Signs Most Recent Vital Signs in EMR: Temp Pulse Resp BP Pulse Ox 36.7 C 81 18 128/93 H 98 03/24/21 12:24 03/24/21 12:24 03/24/21 12:24 03/24/21 12:24 03/24/21 12:24 Lab Results Blood Type / Crossmatch: No Data to Display Complete Blood Count: No Data to Display Complete Metabolic Panel: No Data to Display Liver Function Panel: No Data to Display Coagulation Panel: No Data to Display Cardiac Panel: No Data to Display Arterial Blood Gas: No Data to Display Venous Blood Gas: No Data to Display Pancreas Panel: No Data to Display Thyroid Panel: No Data to Display Infectious Disease: Coronavirus (COVID-19)(PCR) Negative (Negative) 03/22/21 08:30 03/22/21 Coronavirus 2019 Source Nasal/Nares 03/22/21 08:30 03/22/21 Blood Cultures: No Data to Display Toxicology Panel: No Data to Display Anesthesia Assessment and Plan Anesthesia History Personal History: No History of Anesthesia Complications Family History: No Family History of Anesthesia Complications Exercise Tolerance Exercise Tolerance: Metabolic Equivalents>4 Pertinent Negatives Pertinent Negatives: No Symptoms of GERD (Took omeprazole), No Major Cardiovascular Symptoms or Complaints, No Major Pulmonary Symptoms or Complaints and No History of CVA/TIA Cardiac & Pulmonary Exam Cardiac Exam: Normal S1/S2 Heart Sounds Pulmonary Exam: Clear Bilateral Breath Sounds Implantable Cardiac Device Does patient have a Pacemaker or an ICD?: No Airway Exam Known Difficult Airway: No Mallampati Class: 1 Mouth Opening: Normal (> 3cm) Thyromental Distance: Greater than 3 cm Neck Range of Motion: Full ROM Neck Circumference: Normal Teeth Condition: Normal Dentition ASA Classification ASA Score: ASA 2 Emergency Case?: No NPO Status NPO Status: NPO Clears >2 hours, Solids >8 hours Anesthesia Plan Resuscitation Status: Full Code Anesthesia Technique: General Anesthesia Airway Planned: Natural Airway Monitors Used: Standard Monitors Preoperative Comments:: 10/25/2019 Ankle fracture, GETA, Pettibone 3, Grade 1 01/11/2021 Colonoscopy General without airway, no issues
[2021-03-24 12:24] VITALS: BP 128/93; PULSE 81; RESP 18; TEMP 36.7; O2SAT 98
[2021-03-24] MEDS: Acetaminophen 500 MG TAB 1000 MG PO (13:00)
[2021-03-24] MEDS: Celecoxib 200 MG CAP PO (13:00)
[2021-03-24] MEDS: Lactated Ringers 1,000 ML 80 ML IV (13:14)
--- NOTE | 2021-03-24 13:18 | W.PREOPHP ---
Assessment and Plan Assessment and plan (1) Left breast mass: Status: Acute Assessment and plan: Rosenda is back to see me today to discuss excisional biopsy of a left breast nodule. I did do a core needle biopsy of it back in April which was negative for malignancy. The radiologist is continuing to request mammograms every 6 months. The patient at this point would like to just have the nodule removed so she does not have to have mammograms that often. I reviewed the procedure with her and the possible complications. Risks, benefits and complications were reviewed with her. Complications include but are not limited to bleeding, pain, infection, seroma, hematoma, need for further surgery, and adverse reaction to the medications. Questions were entertained and answered to her satisfaction and she wished to proceed. No guarantees were given or implied. Proceed with needle localized excisional biopsy of left breast nodule History of Present Illness Narrative: Rosenda is back to see me today to discuss having her left breast nodule removed. She had a mammogram in March which was abnormal. This was followed with an ultrasound in April again showing a probably benign nodule but biopsy was recommended. She underwent a ultrasound-guided core needle biopsy. The pathology results were that of a fibroadenoma. There were no malignancy or atypical cells. She had a follow-up mammogram in July which was unchanged. Another mammogram was requested for 6 months. The patient at this point would like to just have the nodule removed and not have mammograms every 6 months. She has not noticed any changes to her left breast. It is still slightly tender. There have been no changes in her skin and no nipple discharge. She is otherwise healthy. She is not had any changes in her health. She underwent a colonoscopy a few months back and did well with the general anesthetic. She denies chest pain and shortness of breath. Review of Systems Cardiovascular Cardiovascular: Denies chest pain, Denies chest pain at rest, Denies irregular heart rhythm, Denies dyspnea and Denies dyspnea on exertion Respiratory Respiratory: Denies cough, Denies dyspnea and Denies dyspnea on exertion Gastrointestinal Gastrointestinal: Reports as per HPI Genitourinary Genitourinary: Denies dysuria, Denies urinary incontinence and Denies urinary urgency Endocrine Endocrine: Reports system reviewed and no additional complaints, except as documented Hematologic/Lymphatic Hematologic/Lymphatic: Denies easy bruising and Denies lymphadenopathy PFSH All Active Problems Chronic migraine without aura, intractable, with status migrainosus (Acute) Breast lesion (Acute) Left breast mass (Acute) Obesity (Chronic) Screening for colon cancer (Acute) Horners syndrome (Acute) Medical History Chronic migraine Depression Depression with anxiety GERD (gastroesophageal reflux disease) History of malignant melanoma of skin HTN (hypertension) Hyperlipidemia Hyperplastic colon polyp Migraine Osteopenia with high risk of fracture Paraesophageal hernia Post-menopausal Ptosis of eyelid, bilateral Serrated adenoma of colon Skin tag Trimalleolar fracture of right ankle Tubular adenoma of colon Urinary incontinence in female Surgical History Gastric banding status History of ankle surgery bilateral History of cancer surgery melanoma removal on right wrist History of cholecystectomy History of colonoscopy 12/2020 History of hernia repair History of hysterectomy History of knee replacement x2-right L History of Glen fundoplication Status post breast reduction Family History Father Colon cancer Social History Smoking/Tobacco Use Status: Never Smoking risk assessment performed?: Yes Alcohol Intake: current Alcohol Intake frequency: holidays/special occasions only Alcohol type: hard liquor Drug use: Never Substance use type: does not use Current gender identity: female Do you feel safe at home: Yes Do you feel safe in your relationship?: Yes Meds Allergies and Home Medications Allergies Allergy/AdvReac Type Severity Reaction Status Date / Time walnut Allergy Intermediate TONGUE Verified 03/24/21 12:44 SWELLS erythromycin base Allergy Mild rash on Verified 03/24/21 12:44 forehead sulfamethoxazole Allergy Mild unknown Verified 03/24/21 12:44 [From Septra] trimethoprim [From Septra] Allergy Mild unknown Verified 03/24/21 12:44 triprolidine Allergy Mild unknown Verified 03/24/21 12:44 oxycodone HCl [From Percocet] AdvReac Intermediate VOMITTING Verified 03/24/21 12:44 DIAL SOAP AdvReac Mild Skin Rash Uncoded 03/24/21 12:44 Home Medications Medication Instructions Recorded Confirmed Type Atorvastatin Calcium 20 mg PO DAILY tab-cap 09/26/17 03/24/21 History Multi-Day Plus Minerals 1 ea PO DAILY 09/26/17 03/24/21 History cyclobenzaprine 10 mg PO .TID,PRN tab-cap 09/26/17 03/24/21 History hydrochlorothiazide 25 mg PO DAILY tab-cap 09/26/17 03/24/21 History lisinopril 10 mg PO DAILY tab-cap 09/26/17 03/24/21 History omeprazole 40 mg PO BID tab-cap 09/26/17 03/24/21 History topiramate 50 mg PO DAILY 09/26/17 03/24/21 History venlafaxine 225 mg PO DAILY tab-cap 09/26/17 03/24/21 History calcium carbonate-vitamin D3 1 tab PO DAILY 10/20/19 03/24/21 History [Calcium 500 With D] acetaminophen 500 mg capsule 500 mg PO Q6H PRN 10/21/19 03/24/21 History onabotulinumtoxinA 100 unit 200 unit IM ONCE 10/21/19 03/24/21 History solution for injection mirtazapine 15 mg PO QHS 10/25/19 03/24/21 History alendronate 35 mg tablet 35 mg PO QWEEK 08/13/20 03/24/21 History butalbital 50 mg-acetaminophen 300 1 cap PO Q4H PRN 08/13/20 03/24/21 History mg-caffeine 40 mg-codeine 30 mg cap celecoxib 100 mg capsule 100 mg PO BID 08/13/20 03/24/21 History Exam Const General: cooperative, comfortable and no acute distress Orientation: alert and oriented x3 HENMT Head: normocephalic and atraumatic Chest Chest: normal inspection of the chest Breast palpation: normal palpation of the breasts Resp Effort & Inspection: normal respiratory effort Auscultation: clear to auscultation bilaterally Cardio Rate: regular rate Rhythm: regular rhythm Results Last Vital Signs Temp 98.1 F 03/24/21 12:24 Pulse 81 03/24/21 12:24 Resp 18 03/24/21 12:24 BP 128/93 H 03/24/21 12:24 Pulse Ox 98 03/24/21 12:24
[2021-03-24 13:48] VITALS: BMI 37.5
[2021-03-24] MEDS: ceFAZolin 2 GM/50 ML BAG IVPB (13:56)
[2021-03-24] MEDS: Bupivacaine LIPOSOME/PF 133 MG/10 ML VIAL IJ (14:30)
--- NOTE | 2021-03-24 14:45 | BREAST_PTH ---
PATIENT: Rosenda Monahan LOC: [facility] U#:[id number] AGE/SX: 65/F ROOM: RE03/24/[address]: Jen Sands MD : 1955 BED: DIS: 03/24/2021 SPEC #: [id number] RECD: 03/24/21 18:50 STATUS: ISRRAEL REQ #: [id number] DARREN: 03/24/21 14:[address]: Jen Sands DEPT: Surgical Specimen RECD BY: Traci Balbuena ENTERED: 03/24/21 18:51 SP TYPE: Breast OTHR DR: Candelario Drummond Tissues: 1 - BREAST INCISION/EXCISION Procedures: IMMUNOPEROXIDASE STAIN GROSS AND MICRO LEVEL 5 Comments: [id number]
--- NOTE | 2021-03-24 15:08 | W.PM.DSUDISC ---
Discharge Plan Disposition Patient Disposition: HOME Condition: Good Discharge Details Reason For Visit: Excisional biopsy of left Breast mass Attending Provider: Jen Sands Primary Care Provider: Candelario Drummond Home Meds and New Rx's Prescriptions: Continued acetaminophen 500 mg capsule 500 mg PO Q6H PRNRF: 0 Botox 100 unit recon soln 200 unit IM ONCE RF: 0 Atorvastatin Calcium 20 MG tablet 20 mg PO DAILY RF: 0 cyclobenzaprine 10 MG tablet 10 mg PO .TID,PRN RF: 0 venlafaxine 75 MG capsule,extended release 24hr 225 mg PO DAILY RF: 0 lisinopril 10 MG tablet 10 mg PO DAILY RF: 0 omeprazole 20 MG capsule,delayed release(DR/EC) 40 mg PO BID RF: 0 hydrochlorothiazide 25 MG tablet 25 mg PO DAILY RF: 0 topiramate 50 MG tablet 50 mg PO DAILY RF: 0 Multi-Day Plus Minerals 1 EACH tablet 1 ea PO DAILY RF: 0 alendronate 35 mg tablet 35 mg PO QWEEK RF: 0 celecoxib 100 mg capsule 100 mg PO BID RF: 0 wyiwiqfiqj-mzzudzzyzn-vop-cod [id number] mg capsule 1 cap PO Q4H PRNRF: 0 mirtazapine 15 mg Tablet 15 mg PO QHS RF: 0 calcium carbonate-vitamin D3 [Calcium 500 With D] 500 mg(1,250mg) -400 unit Tablet 1 tab PO DAILY RF: 0 Discharge Instructions Additional Instructions: Activity at Home after surgery: 1. As tolerated Diet, Nutrition, & wound healin. Avoid alcohol until after you are recovered from your surgery 2. Make sure to eat plenty of lean protein (meat, fish, eggs, cottage cheese, beans) 3. Eat a variety of fruits and vegetables. Eat plenty of high fiber foods to avoid constipation. 4. Drink plenty of liquids to stay hydrated and avoid constipation Pain Medications: 1. Tylenol 650mg every 6 hours as needed and Ibuprofen 600 mg every 6 hours as needed. You may alternate between the 2 medications every 3 hours 2. If a narcotic has been prescribed take as directed only for breakthrough pain For Constipation: 1. Take Milk of Magnesia or MiraLax as needed for constipation Other: 1. You may shower daily. Do not scrub the incisions 2. Do not soak the incisions for 1 week 3. You may alternate ice and heat as needed for pain and swelling Wound Care: 1. Keep the incisions clean and dry Please call our office if you develop: 1. Fevers >101.5 2. Nausea or Vomiting 3. Worsening pain 4. Redness and thick discharge from the wounds If after hours please call the Hospital at and ask to speak to the on-call surgeon Referrals: Jen Sands MD [ [facility] STAFF PHYSICIAN] - Activity:: Activity as Tolerated Diet:: As Tolerated Discharge Orders Discharge Orders: Discharge Order (Routine); Ordered 03/24/21 Ordered By: Jen Sands DS: Diagnosis Discharge Diagnosis (1) Left breast mass: Status: Acute
[2021-03-24 15:22] VITALS: BP 135/100; PULSE 78; RESP 17; TEMP 36.7; O2SAT 98
--- NOTE | 2021-03-24 15:24 | W.PM.OP ---
Date of service: 03/24/21 Time of Service: 15:25 Operative Note Operative Note DATE OF PROCEDURE: 03/24/21 PRE-OP DIAGNOSIS: left Breast mass POST-OP DIAGNOSIS: same PROCEDURE: US guided excisional left Breast biospy SURGEON: Jen Sands INSTRUCTIONAL TECHNOLOGY FACILITATOR: Corin Stephenson ANESTHESIA TYPE: Local By Surgeon and General:No Airway (Aixa Camacho CRNA) Refer to Anesthesia Record ESTIMATED BLOOD LOSS: 15 PATHOLOGY: other (Breast tissue, needle anterior, double suture superior, single suture medial) COMPLICATIONS: None Patient was transported to: same day Patient's condition: stable Indications: Rosenda is back to see me today to discuss excisional biopsy of a left breast nodule. I did do a core needle biopsy of it back in April which was negative for malignancy. The radiologist is continuing to request mammograms every 6 months. The patient at this point would like to just have the nodule removed so she does not have to have mammograms that often. I reviewed the procedure with her and the possible complications. Risks, benefits and complications were reviewed with her. Complications include but are not limited to bleeding, pain, infection, seroma, hematoma, need for further surgery, and adverse reaction to the medications. Questions were entertained and answered to her satisfaction and she wished to proceed. No guarantees were given or implied. Proceed with needle localized excisional biopsy of left breast nodule Procedure Description: After nformed consent was obtained from the patient, she was taken back to the operating room and placed in the supine position on the operating room table. The patient was then placed under general anesthesia without airway. Next with the assistance of the 8th grade mathematics teacher a 10 cm wire was placed into the left breast lesion making sure that the tip of the wire was passed the lesion itself. The skin was cleaned with chlorhexidine prior to placing the wire. Next the left Breast was prepped and draped in a sterile surgical fashion. At this point a timeout was done. The patient's name, date of , allergies to medications, procedure to be done, site of surgery and antibiotic prophylaxis were all reviewed. Fire risk was assessed. Next 20 cc of Exparel mixed 50-50 with 0.25% bupivacaine was injected into the dermis and subcutaneous tissue at the edge of the areola. A 4 cm incision was made with a 10 blade. Dissection was done with cautery about 3 cm circumferentially around the needle. The dissection was taken down past the tip of the wire. Once the breast tissue was completely dissected it was marked with a single suture medialr and a double suture superior. The wire was anterior. The specimen was then sent to radiology where a mammogram picture was taken. It showed the breast lesion to be located centrally within the specimen. The specimen was brought back to the operating room and placed in formalin for pathology. The cavity was irrigated with some normal saline and dried some small areas of bleeding were identified and these were stopped using cautery. Small vascular clips were then placed at the 12:00, 3:00, 6:00 and 9:00 positions. The cavity was inspected again and no bleeding was noted. The subcutaneous tissue was approximated with 3-0 vicryl and the dermis was closed with subcuticular running suture with 4-0 vicryl. The skin was cleaned and dried and skin affix was applied. The patient was slowly woken up and she was taken back to the recovery room in stable condition. Sponge, instruments and needles were correct at the end of the case x2. There were no immediate complications.
--- NOTE | 2021-03-24 15:39 | W.ANESPOSTOP ---
Postoperative Evaluation Date, Time and Location Date Performed: 03/24/21 Time Performed: 15:39 Patient Location: Day Surgery Unit Vital Signs Most Recent Imported Vital Signs: Most Recent Vital Signs Temp Pulse Resp BP Pulse Ox 36.7 C 78 17 135/100 H 98 03/24/21 15:22 03/24/21 15:22 03/24/21 15:22 03/24/21 15:22 03/24/21 15:22 Pain Score Most Recent Pain Score: Most Recent Pain Score Pain Level 3 03/24/21 15:22 Assessment Mental Status: Awake (Alert & Oriented to Patient Baseline) Airway and Respiratory Function: Patent airway with normal (patient baseline) respiratory exam Cardiovascular Function: Hemodynamically Stable Hydration Status: Adequately Hydrated Nausea & Vomiting: No Nausea or Vomiting Pain: Pain is tolerable per patient Peripheral Nerve Block: Patient did not receive a nerve block
[2021-03-24 15:54] VITALS: BP 154/93; PULSE 69; RESP 16; TEMP 36.6; O2SAT 16
== END 2021-03-24 16:25 | disposition home or self-care (01) ==
PROVIDERS: PCP Family Medicine; Visit Provider Surgery
PROC: (CPT 19301; principal; 2021-03-24 14:00)
DX: D24.2 Benign neoplasm of left breast (principal); N60.02 Solitary cyst of left breast; G90.2 Horner's syndrome; F41.8 Other specified anxiety disorders; I10 Essential (primary) hypertension; K21.9 Gastro-esophageal reflux disease without esophagitis; G43.909 Migraine, unspecified, not intractable, without status migrainosus
CPT/HCPCS: 19301; 38525; 38792; 19285; 38900; 77061; 77065; 76942; 88307; 88361; G0279; J0690; J1885; J2001; J2405; J2704

== ENCOUNTER → 2021-04-06 09:37 | Outpatient (BNVA) | payer MEDICARE, OTHER, SELFPAY | PROVIDERS: PCP Family Medicine; Referring Provider Internal Medicine; Visit Provider Surgery | DX: Z48.817 Encounter for surgical aftercare following surgery on the skin and subcutaneous tissue (principal); N60.12 Diffuse cystic mastopathy of left breast ==

== ENCOUNTER 2021-07-16 01:39 | Outpatient (CLI) | payer MEDICARE, OTHER, SELFPAY ==
--- NOTE | 2021-07-16 10:01 | DI.MAMMO_ITS ---
Exam(s) MAMMO SCREENING EXAM: MAMMO SCREENING CLINICAL HISTORY: screening,Z12.39. TECHNIQUE: Bilateral full field digital CC and MLO mammographic images were obtained with 3D tomosyn thesis and utilizing computer aided detection (CAD). COMPARISON: Prior mammograms were reviewed, the most recent being July 2020. Been interval excisional biopsy of the left breast, apparently negative for malignancy. FINDINGS: Fibroglandular tissue pattern in the breasts is again noted be fatty. Four surgical clips now noted centrally in the left breast. No remaining nodules nor malignant-appea ring microcalcification groups. There are no new spiculated masses nor malignant appearing microcalcification groups. Small nodule anteriorly in the right breast is unchanged from prior studies There is no significant architectural distortion nor skin thickening-retraction. IMPRESSION: Stable benign findings. No radiographic evidence of malignancy. BI-RADS Category 2 - Benign Findings Breast Density - Category A - Almost entirely fatty Breast density Category C or D implies that the patient has dense breast tissue. Dense breast tissue can make it harder to find cancer on a mammogram. Dense breast tissue is also associated with an incr eased risk of breast cancer. This information about the result of the mammogram report was provided to the patient to raise their awareness. Use this report when you speak with the patient about their risks for breast cancer, which includes their family history. At that time, you may recommend additional screening tests (Ultrasoun d or MRI) as these tests may add significant information. A negative radiographic report should not delay biopsy if a dominant or clinically suspicious mass is present. Up to ten percent of cancers are not identified on mammography. A negative report may reinforce clinical impression. Adenosis and dense breasts may obscure an underlying neoplasm. False positive reports average 6 to 10%. Patient will receive a letter notifying them of these results.
== END 2021-07-16 01:59 ==
PROVIDERS: PCP Family Medicine; Visit Provider Surgery
DX: Z12.31 Encounter for screening mammogram for malignant neoplasm of breast (principal); Z98.890 Other specified postprocedural states
CPT/HCPCS: 77063; 77067

== ENCOUNTER → 2021-09-08 12:28 | Outpatient (BNVA) | payer MEDICARE, OTHER, SELFPAY | PROVIDERS: PCP Family Medicine; Referring Provider Family Medicine; Visit Provider Nurse Practitioner Adult Health | DX: G43.009 Migraine without aura, not intractable, without status migrainosus (principal) | CPT/HCPCS: 99204; 99214 ==

== ENCOUNTER → 2021-11-10 09:14 | Outpatient (BNVA) | payer MEDICARE, OTHER, SELFPAY | PROVIDERS: PCP Family Medicine; Referring Provider Family Medicine; Visit Provider Nurse Practitioner Adult Health | DX: G43.009 Migraine without aura, not intractable, without status migrainosus (principal) | CPT/HCPCS: 99212; 99213 ==

== ENCOUNTER 2022-02-23 15:10 | Outpatient (REF) | payer MEDICARE, OTHER, SELFPAY ==
[2022-02-23 14:11] LABS: HGB 12.4 g/dL (11.2-15.7); MCH 23.9 pg (27.0-33.0); MCV 77 fL (80-95); MPV 9.8 fL (8.0-11.0); Platelet Count 375 10^3/uL (130-400); RBC 5.18 10^6/uL (3.93-5.22); RDW 14.8 % (11.7-14.6); RDW-SD 41.2 fL; WBC 6.84 10^3/uL (4.4-10.8)
[2022-02-23 14:38] LABS: Anion Gap 9.7 mmol/L (3-11); BUN 10 mg/dL (7-18); CO2 27.3 mmol/L (21.0-32.0); CREATININE 0.9 mg/dL (0.55-1.02); Calcium 9.1 mg/dL (8.5-10.1); Chloride 102 mmol/L (98-107); Estimated GFR 69.64 (mL/min/1.73m2); Glucose 90 mg/dL (74-106); Potassium 3.9 mmol/L (3.5-5.1); Sodium 139 mmol/L (136-145)
== END 2022-02-23 15:11 | disposition home or self-care (01) ==
LOC: NCHCN 15:10
PROVIDERS: PCP Family Medicine; Visit Provider Family Medicine
DX: I10 Essential (primary) hypertension (principal)
CPT/HCPCS: 80048; 85027

== ENCOUNTER 2022-04-07 02:12 | Outpatient (RCR) | payer MEDICARE, OTHER, SELFPAY ==
[2022-04-07] MEDS: ZOLEDRONIC ACID/MANNITOL/WATER 5 MG/100 ML BTL 300 MG IVPB (08:14)
[2022-04-07] MEDS: Normal Saline Flush 10 ML SYR IVP (08:15)
== END 2022-04-12 23:59 | disposition home or self-care (01) ==
LOC: INF 02:12
PROVIDERS: PCP Family Medicine; Visit Provider Nurse Practitioner Family
DX: M81.0 Age-related osteoporosis without current pathological fracture (principal)
CPT/HCPCS: 96365; J3489

== ENCOUNTER → 2022-05-23 09:16 | Outpatient (BNVA) | payer MEDICARE, OTHER, SELFPAY | PROVIDERS: PCP Family Medicine; Visit Provider Nurse Practitioner Adult Health | DX: G43.009 Migraine without aura, not intractable, without status migrainosus (principal) | CPT/HCPCS: 99213 ==

== ENCOUNTER 2022-07-19 13:32 | Outpatient (CLI) | payer MEDICARE, OTHER, SELFPAY ==
--- NOTE | 2022-07-19 | DI.CT_ITS ---
Exam(s) CT HEAD WO EXAM: CT HEAD WO CLINICAL HISTORY: H/O CLOSED HEAD INJURY,Z87.820,FELL. TECHNIQUE: Imaging Protocol: Axial computed tomography images with coronal and sagittal reformatted images were created and reviewed COMPARISON: No exams were available for comparison FINDINGS: There are no skull fractures. There is no fluid in the visualized paranasal sinuses. There is no evidence of intracranial hemorrhage, mass effect, or shift of midline structures. There are no extra-axial fluid collections. The ventricles are not enlarged or shifted and there is no blo od within the ventricular system nor within the basal cisterns. IMPRESSION: No acute intracranial findings on this noninfused CT scan of the brain. RADIATION DOSE DELIVERED: 709.35mGy.cm Total DLP DATA REPOSITORY: All CT scans at this facility are submitted to the National Radiology Data Registry (NRDR) Dose Index Registry (DIR) with the [employer] (A[employer]). RADIATION OPTIMIZATION: All CT scans at this facility use at least one of these dose optimization te chniques: automated exposure control; mA and/or kV adjustment per patient size (includes targeted exa ms where dose is matched to clinical indication); or iterative reconstruction.
== END 2022-07-19 13:52 ==
LOC: DI 13:33
PROVIDERS: PCP Family Medicine; Visit Provider Family Medicine
DX: Z87.820 Personal history of traumatic brain injury (principal)
CPT/HCPCS: 70450

== ENCOUNTER 2022-09-08 14:53 | Outpatient (REF) | payer MEDICARE, OTHER, SELFPAY ==
[2022-09-08 18:47] LABS: Abs Immature Grans 0.01 10^3/uL (0.0-0.06); Absolute Basophil Count 0.07 10^3/uL (0.0-0.2); Absolute Eosinophil Count 0.24 10^3/uL (0.0-0.7); Absolute Lymphocyte Count 2.44 10^3/uL (1.2-3.4); Absolute Monocyte Count 0.57 10^3/uL (0.1-0.8); Absolute Neutrophil Count 4.12 10^3/uL (1.2-6.7); Basophils % 0.9; Eosinophils % 3.2; HCT 37.5 % (36.0-46.0); HGB 11.4 g/dL (11.2-15.7); Immature Grans % 0.1; Lymphocytes % 32.8; MCH 23.2 pg (27.0-33.0); MCHC 30.4 % (32.0-36.0); MCV 76 fL (80-95); MPV 9.3 fL (8.0-11.0); Monocytes % 7.7; Neutrophils % 55.3; Platelet Count 402 10^3/uL (130-400); RBC 4.92 10^6/uL (3.93-5.22); RDW 15.1 % (11.7-14.6); RDW-SD 41.4 fL; WBC 7.45 10^3/uL (4.4-10.8)
[2022-09-08 19:01] LABS: ALT 32 U/L (14-59); AST 35 U/L (15-37); Albumin 3.9 g/dL (3.4-5.0); Alkaline Phosphatase 112 U/L (46-116); Anion Gap 8.7 mmol/L (3-11); BUN 11 mg/dL (7-18); Bilirubin, Total 0.2 mg/dL (0.2-1.0); CO2 29.3 mmol/L (21.0-32.0); Chloride 100 mmol/L (98-107); Estimated GFR 60.98 (mL/min/1.73m2); Ferritin 12 ng/mL (8-252); Glucose 89 mg/dL (74-106); Iron 33 ug/dL (50-170); Potassium 3.8 mmol/L (3.5-5.1); Sodium 138 mmol/L (136-145); Total Iron Binding Capacity 449 ug/dL (250-450); Total Protein 7.3 g/dL (6.4-8.2); Transferrin Sat 7 % (15-50)
== END 2022-09-08 14:54 | disposition home or self-care (01) ==
LOC: NCHCN 14:53
PROVIDERS: PCP Family Medicine; Visit Provider Family Medicine
DX: D64.9 Anemia, unspecified (principal); R06.09 Other forms of dyspnea
CPT/HCPCS: 80053; 82728; 83540; 83550; 85025

== ENCOUNTER 2022-11-16 16:42 | Outpatient (REF) | payer MEDICARE, OTHER, SELFPAY ==
[2022-11-16 17:36] LABS: HCT 47.6 % (36.0-46.0); HGB 15.2 g/dL (11.2-15.7); MCH 25.9 pg (27.0-33.0); MCHC 31.9 % (32.0-36.0); MCV 81 fL (80-95); MPV 10.3 fL (8.0-11.0); Platelet Count 304 10^3/uL (130-400); RBC 5.86 10^6/uL (3.93-5.22); RDW 20.3 % (11.7-14.6); RDW-SD 58.2 fL; WBC 6.45 10^3/uL (4.4-10.8)
[2022-11-16 18:32] LABS: Ferritin 41 ng/mL (8-252)
== END 2022-11-16 16:43 | disposition home or self-care (01) ==
LOC: NCHCN 16:42
PROVIDERS: PCP Family Medicine; Visit Provider Family Medicine
DX: D64.9 Anemia, unspecified (principal)
CPT/HCPCS: 85027; 82728

== ENCOUNTER → 2022-11-23 10:49 | Outpatient (BNVA) | payer MEDICARE, OTHER, SELFPAY | PROVIDERS: PCP Family Medicine; Referring Provider Family Medicine; Visit Provider Nurse Practitioner Adult Health | DX: G43.009 Migraine without aura, not intractable, without status migrainosus (principal) | CPT/HCPCS: 99213 ==

== ENCOUNTER 2023-02-28 20:38 | Outpatient (REF) | payer MEDICARE, OTHER, SELFPAY ==
[2023-02-28 15:05] LABS: HCT 45.2 % (36.0-46.0); HGB 14.8 g/dL (11.2-15.7); MCH 28.1 pg (27.0-33.0); MCHC 32.7 % (32.0-36.0); MCV 86 fL (80-95); MPV 9.4 fL (8.0-11.0); Platelet Count 291 10^3/uL (130-400); RBC 5.26 10^6/uL (3.93-5.22); RDW 13.2 % (11.7-14.6); RDW-SD 40.8 fL; WBC 5.97 10^3/uL (4.4-10.8)
[2023-02-28 15:23] LABS: ALT 35 U/L (14-59); AST 21 U/L (15-37); Albumin 3.8 g/dL (3.4-5.0); Alkaline Phosphatase 96 U/L (46-116); Anion Gap 10.4 mmol/L (3-11); BUN 13 mg/dL (7-18); Bilirubin, Total 0.4 mg/dL (0.2-1.0); CO2 26.6 mmol/L (21.0-32.0); CREATININE 1.1 mg/dL (0.55-1.02); Calcium 9.4 mg/dL (8.5-10.1); Chloride 105 mmol/L (98-107); Estimated GFR 54.39 (mL/min/1.73m2); Glucose 132 mg/dL (74-106); Potassium 3.9 mmol/L (3.5-5.1); Sodium 142 mmol/L (136-145); Total Protein 6.7 g/dL (6.4-8.2)
== END 2023-02-28 20:39 | disposition home or self-care (01) ==
LOC: NCHCN 20:38
PROVIDERS: PCP Family Medicine; Visit Provider Family Medicine
DX: D64.9 Anemia, unspecified (principal); E78.5 Hyperlipidemia, unspecified
CPT/HCPCS: 80053; 85027

== ENCOUNTER → 2023-03-23 02:38 | Outpatient (CLI) | payer MEDICARE, OTHER, SELFPAY ==
--- NOTE | 2023-03-23 | DI.DEXA_ITS ---
Exam(s) XR DEXA BONE DENSITY W/WO FRANCISCO EXAM: XR DEXA BONE DENSITY W/WO FRANCISCO CLINICAL HISTORY: SCREENING FOR OSTEOPOROSIS IN POSTMENOPAUSAL WOMAN,Z78.0 TECHNIQUE: COMPARISON: CR XR DEXA BONE DENSITY W/WO FRANCISCO from 04/09/2020 FINDINGS: Lateral Spine Image: Unremarkable. No compression deformities identified. Left hip: Total T-Score: 0.4. This compares to 0.0 on the prior examination. Total Z-Score: 1.9 T- and Z-scores: Within normal limits. Lumbar Spine: Total T-Score: 0.9. This compares to -0.2 on the prior examination. Total Z-Score: 3.1 T- and Z-scores: Within normal limits. IMPRESSION: No evidence of osteoporosis.
--- NOTE | 2023-03-23 | DI.MAMMO_ITS ---
Exam(s) MAMMO SCREENING EXAM: MAMMO SCREENING CLINICAL HISTORY: SCREENING,H/O LUMPECTOMY. TECHNIQUE: Bilateral full field digital CC and MLO mammographic images were obtained with 3D tomosyn thesis and utilizing computer aided detection (CAD). COMPARISON: Prior mammograms were reviewed. FINDINGS: There has been no significant change in the appearance and distribution of the fibroglandular tissue. Surgical clips at the left breast lumpectomy site are again noted. There are no new spiculated masses nor malignant appearing microcalcification groups. Small nodular density in the right breast is unchanged from prior mammograms. There are no CAD designations There is no significant architectural distortion nor skin thickening-retraction. IMPRESSION: Stable benign findings. No radiographic evidence of malignancy. BI-RADS Category 2 - Benign Findings Breast Density - Category A - Almost entirely fatty Breast density Category C or D implies that the patient has dense breast tissue. Dense breast tissue can make it harder to find cancer on a mammogram. Dense breast tissue is also associated with an incr eased risk of breast cancer. This information about the result of the mammogram report was provided to the patient to raise their awareness. Use this report when you speak with the patient about their risks for breast cancer, which includes their family history. At that time, you may recommend additional screening tests (Ultrasoun d or MRI) as these tests may add significant information. A negative radiographic report should not delay biopsy if a dominant or clinically suspicious mass is present. Up to ten percent of cancers are not identified on mammography. A negative report may reinforce clinical impression. Adenosis and dense breasts may obscure an underlying neoplasm. False positive reports average 6 to 10%. Patient will receive a letter notifying them of these results.
== END ==
PROVIDERS: PCP Family Medicine; Visit Provider Family Medicine
DX: Z78.0 Asymptomatic menopausal state (principal); Z13.820 Encounter for screening for osteoporosis; Z12.31 Encounter for screening mammogram for malignant neoplasm of breast; Z98.890 Other specified postprocedural states
CPT/HCPCS: 77063; 77067; 77080

== ENCOUNTER → 2023-05-17 08:04 | Outpatient (BNVA) | payer MEDICARE, OTHER, SELFPAY | PROVIDERS: PCP Family Medicine; Referring Provider Family Medicine; Visit Provider Nurse Practitioner Adult Health | DX: G43.009 Migraine without aura, not intractable, without status migrainosus (principal); R20.2 Paresthesia of skin | CPT/HCPCS: 99213 ==

== ENCOUNTER → 2023-07-20 10:38 | Outpatient (BNVA) | payer MEDICARE, OTHER, SELFPAY | PROVIDERS: PCP Family Medicine; Referring Provider Family Medicine; Visit Provider Physical Therapy Assistant | DX: Z12.11 Encounter for screening for malignant neoplasm of colon (principal); Z86.010 Personal history of colon polyps; Z80.0 Family history of malignant neoplasm of digestive organs ==

== ENCOUNTER 2023-08-04 08:17 | Day surgery (SDC) | payer MEDICARE, OTHER, SELFPAY ==
--- NOTE | 2023-08-03 20:36 | W.PM.DSUDISC ---
Date of service: 08/04/23 Time of Service: 09:39 Discharge Plan Disposition Patient Disposition: Home Condition: Good Discharge Details Reason For Visit: screening colonoscopy Attending Provider: Clive Barragan Primary Care Provider: Candelario Drummond Home Meds and New Rx's Prescriptions: Continued acetaminophen 500 mg capsule 500 mg PO Q6H PRN Botox 100 unit recon soln 200 unit IM ONCE Ubrelvy 100 mg tablet 100 mg PO ONCE Qty: 15 11RF Rx Instructions: as a single dose; may repeat once in >=2 hours after first dose if needed topiramate 50 mg tablet 50 mg PO DAILY Qty: 90 3RF omeprazole 20 mg capsule,delayed release(DR/EC) 20 mg PO BID cyclobenzaprine 10 MG tablet 10 mg PO .TID,PRN hydrochlorothiazide 25 MG tablet 25 mg PO DAILY celecoxib 100 mg capsule 100 mg PO BID venlafaxine [Effexor XR] 75 mg capsule,extended release 24hr 75 mg PO BID Rx Instructions: 1 TABLET IN AM AND 2 TABLETS AT HS lisinopril 10 mg tablet 5 mg PO DAILY ferrous sulfate 27 mg iron tablet 325 mg PO BID loratadine 10 mg tablet 10 mg PO DAILY topiramate [Topamax] 100 mg tablet 100 mg PO DAILY calcium carbonate 400 mg calcium (1,000 mg) tablet,chewable 400 mg PO DAILY mirtazapine 15 mg Tablet 15 mg PO QHS Discontinued bisacodyl [Dulcolax (bisacodyl)] 5 mg tablet,delayed release (DR/EC) 5 mg PO ONCE Qty: 4 0RF Rx Instructions: Take per colonoscopy instructions provided by ordering providers office polyethylene glycol 3350 17 gram/dose powder 17 g PO ONCE Qty: 238 0RF Rx Instructions: Take per colonoscopy instructions provided by ordering providers office Discharge Instructions Instructions: Diverticulosis (GEN), Colorectal Polyps (GEN), Diverticulosis Diet (GEN) Additional Instructions: Rosenda, we are able to complete your colonoscopy today without any difficulty. I did find and remove a total of 4 polyps. None of them have any features that are worrisome to the naked eye, but I will send all of these off for testing to be certain. Once I know the nature of the polyps, I can offer more definitive recommendation for the timing of your next colonoscopy. Those results usually take about a week or so. Incidentally, you also have some diverticulosis. Diverticula are little weak spots in the muscular part of the colon wall. They typically accumulate as we get older. Maintaining a diet that is rich in fiber, and staying well-hydrated are probably the best strategies to help take care of them. We have attached a little bit of information here about diverticulosis as well as colorectal polyps. If you have any questions in the meantime, please do not hesitate to call at any point. 1. If tolerated, consume a soft, low fiber diet for 1-2 days. [address] not drive, drink alcohol, operate machinery, make critical decisions, or do activities that require coordination or balance for 24 hours. 3. Because air was put into your colon during the procedure, expelling air from your rectum (passing gas or farting) is normal. 4. You may not have a bowel movement for 1-3 days because of the colonoscopy prep. This is normal. 5. Go directly to the emergency room if you notice any of the following: Develop chills (warm to touch), or if you have a thermometer and your temperature is above 101 Difficulty breathing or difficultly swallowing Persistent vomiting Severe abdominal pain, other than gas cramps Severe chest pain Black, tarry stools Any bleeding ? exceeding one tablespoon 6. Call your physician if the site where your intravenous was started becomes red, swollen, painful, and warm to touch. 7. Your physician has reviewed your pre-procedure medications. Please continue to take those medications as previously ordered. You will be given specific information/education regarding any changes to your medications before leaving. Stand Alone Forms: Anesthesia Discharge InstJuan, Rachid Gonsalez (DSU) Activity:: Activity as Tolerated Diet:: As Tolerated Discharge Orders Discharge Orders: Discharge Order (Routine); Ordered 08/03/23 Ordered By: Clive Barragan DS: Diagnosis Discharge Diagnosis (1) Encounter for screening colonoscopy: Status: Acute Asessment and Plan: Follow-up on polypectomy results
--- NOTE | 2023-08-03 20:38 | W.COLOREPORT ---
Date of service: 08/04/23 Time of Service: 09:44 Colonoscopy Report Date of procedure: 08/04/23 Pre-op diagnosis general: screening colonoscopy Post-op diagnosis procedure note: other (Diverticulosis, colon polyps) Procedure: colonoscopy with polypectomy Surgeon: Clive Barragan Anesthesia Type: General:No Airway Estimated blood loss (mL): 10 Pathology: other (0.25 cm polyps at 65 cm x 2, 0.5 cm polyp at 50 cm, 0.5 cm polyp at 25 cm) Complications: None Disposition: same day Indications: Rosenda is a 67 year old woman with a history of adenomatous polyps who needs a screening colonoscopy Prep: Miralax/Dulcolax Procedure Start Time: 09:12 Procedure End Time: :28 Retraction Time: 10 Findings: Sigmoid diverticulosis; 0.25 cm polyps at 65 cm x 2, 0.5 cm polyp at 50 cm, 0.5 cm polyp at 25 cm Procedure Description: After the induction of monitored anesthetic care, and with the patient in left lateral decubitus position, I began by performing an external anorectal exam.? Perineum and skin were normal, as was the anal verge.? There are some perianal skin tags consistent with old hemorrhoids.? Next, I performed a digital rectal exam.? I did not appreciate any abnormal findings.? Next, I advanced a colonoscope into the rectal vault.? I performed retroflexion.? This was normal.? Using insufflation, I then advanced the colonoscope beyond the rectal folds and into the sigmoid colon before advancing towards the cecum.? The scope was noted to be in the cecum by identification of the ileocecal valve and appendiceal orifice.? I then began withdrawing the colonoscope using repeated irrigation as necessary for full evaluation of the colonic mucosa. Around 65 cm from the anal verge I identified 2 polyps. Both were about 0.25 cm. These were mostly flat, and I was able to remove these both with cold forceps without any issues. ?I examined the site, and there was minimal bleeding. ?Once this was completed, I continued to withdraw the scope and examine the remainder of the colonic mucosa.? I found another 0.5 cm flat polyp at 50 cm, which was also removed with cold forceps. And just above the rectum, around 25 cm from the anal verge was another polyp. This was about 0.5 cm and a little more pedunculated. This was also removed with cold forceps. Once the scope was withdrawn to the level of the rectum, great care was taken to examine portions of the rectal folds.? Finally, the scope was withdrawn and the patient was brought to the same-day surgery recovery unit as the anesthetic wore off. ?The findings and instructions were shared with the patient prior to discharge. Concord Bowel Prep Concord Bowel Prep Right Colon: 3 Left Colon: 3 Transverse Colon: 3 Total Score: 9
[2023-08-04 08:38] VITALS: BP 121/87; PULSE 86; RESP 18; TEMP 36.5; O2SAT 97
[2023-08-04] MEDS: Lactated Ringers 1,000 ML 80 ML IV (08:38)
--- NOTE | 2023-08-04 08:54 | W.ANESPRE ---
General Info Date of Service Date Performed: 08/04/23 Height: 5 ft 5 in Weight: 103.5 kg Body Mass Index (BMI): 38.0 Surgical Procedure: Operation Date: 08/04/23 09:35 Proposed Procedure Side Surgeon sherice Barragan MD Meds Allergies and Home Medications Allergies Allergy/AdvReac Type Severity Reaction Status Date / Time walnut Allergy Intermediate TONGUE Verified 08/04/23 08:31 SWELLS erythromycin base Allergy Mild rash on Verified 08/04/23 08:31 forehead sulfamethoxazole Allergy Mild unknown Verified 08/04/23 08:31 [From Septra] trimethoprim [From Septra] Allergy Mild unknown Verified 08/04/23 08:31 triprolidine Allergy Mild unknown Verified 08/04/23 08:31 oxycodone HCl [From Percocet] AdvReac Intermediate VOMITTING Verified 08/04/23 08:31 DIAL SOAP AdvReac Mild Skin Rash Uncoded 08/04/23 08:31 Home Medication Medication Instructions Recorded cyclobenzaprine 10 mg tablet 10 mg PO .TID,PRN 09/26/17 hydrochlorothiazide 25 mg tablet 25 mg PO DAILY 09/26/17 acetaminophen 500 mg capsule 500 mg PO Q6H PRN 10/21/19 onabotulinumtoxinA 100 unit 200 unit IM ONCE 10/21/19 solution for injection (Botox) mirtazapine 15 mg tablet 15 mg PO QHS 10/25/19 celecoxib 100 mg capsule 100 mg PO BID 08/13/20 omeprazole 20 mg capsule,delayed 20 mg PO BID 05/23/22 release topiramate 50 mg tablet 50 mg PO DAILY #90 tabs 11/23/22 ubrogepant 100 mg tablet (Ubrelvy) 100 mg PO ONCE #15 tabs 11/23/22 calcium carbonate 400 mg PO DAILY 05/22/23 ferrous sulfate 27 mg iron tablet 325 mg PO BID 05/22/23 lisinopril 10 mg tablet 5 mg PO DAILY 05/22/23 loratadine 10 mg tablet 10 mg PO DAILY 05/22/23 topiramate 100 mg tablet (Topamax) 100 mg PO DAILY 05/22/23 venlafaxine 75 mg capsule,extended 75 mg PO BID 05/22/23 release 24 hr (Effexor XR) Current Visit Medications: Current Medications Generic Name Dose Route Start Last Admin Trade Name Freq PRN Reason Stop Dose Admin Hyoscyamine Sulfate 0.125 mg 08/03/23 20:39 Hyoscyamine 0.125 Mg Sl/Oral/Chew SL 09/02/23 20:38 DIRECTED PRN Ringer's Solution 1,000 mls @ 80 mls/hr 08/04/23 06:00 08/04/23 08:38 IV 08/04/23 23:59 80 mls/hr INFUSION AMILCAR Administration IV Miscellaneous Supplies 1 each 08/04/23 06:00 Iv Access IV 08/04/23 23:59 DIRECTED AMILCAR Ondansetron HCl 4 mg 08/03/23 20:39 Ondansetron 4 Mg/2 Ml Vial IVP 09/02/23 20:38 Q4H PRN PRN Nausea / Vomiting Sodium Chloride 0 ml 08/04/23 06:00 Normal Saline Flush 10 Ml Syr IV 08/04/23 23:59 PRN PRN Sodium Chloride 0 ml 08/04/23 06:00 Normal Saline 10 Ml Vial IJ 08/04/23 23:59 DIRECTED PRN Sterile Water 0 ml 08/04/23 06:00 Water,Injection,Sterile 10 Ml Vial IJ 08/04/23 23:59 DIRECTED PRN PFSH Active Problems Active Problems: Problem Status Onset Code Encounter for screening colonoscopy Z12.11 Paresthesias in left hand R20.2 Migraine headache without aura G43.009 Follow up Z09 Screening for colon cancer Z12.11 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 denies Allergic rhinitis Peroneal neuropathy Chronic diarrhea Chronic migraine Serrated adenoma of colon Tubular adenoma of colon Hyperplastic colon polyp History of malignant melanoma of skin Depression with anxiety Hyperlipidemia Paraesophageal hernia Urinary incontinence in female Ptosis of eyelid, bilateral Post-menopausal Osteopenia with high risk of fracture Skin tag Migraine GERD (gastroesophageal reflux disease) Depression Trimalleolar fracture of right ankle HTN (hypertension) Surgical History Surgical History History of colonoscopy 12/2020 Gastric banding status History of [place] fundoplication Status post breast reduction History of cancer surgery melanoma removal on right wrist History of hernia repair History of hysterectomy History of cholecystectomy History of ankle surgery bilateral History of knee replacement x2-right L Tobacco Smoking/Tobacco Use Status: Never Alcohol Alcohol Intake: current Alcohol intake frequency: holidays/special occasions only Alcohol type: hard liquor Substance Use Substance use: Never Substance use type: does not use Vital Signs and Lab Results Vital Signs Most Recent Vital Signs in EMR: Most Recent Vital Signs Temp Pulse Resp BP Pulse Ox 36.5 C 86 18 121/87 97 08/04/23 08:38 08/04/23 08:38 08/04/23 08:38 08/04/23 08:38 08/04/23 08:38 Lab Results Blood Type / Crossmatch: No Data to Display Complete Blood Count: No Data to Display Complete Metabolic Panel: No Data to Display Liver Function Panel: No Data to Display Coagulation Panel: No Data to Display Cardiac Panel: No Data to Display Arterial Blood Gas: No Data to Display Venous Blood Gas: No Data to Display Pancreas Panel: No Data to Display Thyroid Panel: No Data to Display Infectious Disease: No Data to Display Blood Cultures: No Data to Display Toxicology Panel: No Data to Display Anesthesia Assessment and Plan Anesthesia History Personal History: No History of Anesthesia Complications Family History: No Family History of Anesthesia Complications Exercise Tolerance Exercise Tolerance: Metabolic Equivalents>4 Cardiac & Pulmonary Exam Cardiac Exam: Normal S1/S2 Heart Sounds Pulmonary Exam: Clear Bilateral Breath Sounds Implantable Cardiac Device Does patient have a Pacemaker or an ICD?: No Airway Exam Known Difficult Airway: No Mallampati Class: 1 Mouth Opening: Normal (> 3cm) Thyromental Distance: Greater than 3 cm Neck Range of Motion: Full ROM Neck Circumference: Normal Teeth Condition: Normal Dentition ASA Classification ASA Score: ASA 2 Emergency Case?: No NPO Status NPO Status: NPO Clears >2 hours, Solids >8 hours Anesthesia Plan Resuscitation Status: Full Code Anesthesia Technique: General Anesthesia Airway Planned: Natural Airway Monitors Used: Standard Monitors
[2023-08-04 08:55] VITALS: BMI 38.0
--- NOTE | 2023-08-04 09:23 | BOWEL_PTH ---
PATIENT: Rosenda Monahan LOC: [facility] U#:[id number] AGE/SX: 67/F ROOM: RE08/04/[address]: Clive Barragan MD : [id number] BED: DIS: 08/04/2023 SPEC #: [id number] RECD: 08/04/23 13:08 STATUS: ISRRAEL RE #: [id number] DARREN: 08/04/23 09:[address]: Clive Barragan DEPT: Surgical Specimen RECD BY: Traci Balbuena ENTERED: 08/04/23 13:10 SP TYPE: Bowel OTHR DR: Candelario Drummond Tissues: 1 - BIOPSY BOWEL 2 - BIOPSY BOWEL 3 - BIOPSY BOWEL Procedures: GROSS AND MICRO LEVEL 4 Comments: [id number]
[2023-08-04 09:34] VITALS: BP 134/105; PULSE 84; RESP 16; TEMP 36.4; O2SAT 97
--- NOTE | 2023-08-04 09:43 | W.ANESPOSTOP ---
Postoperative Evaluation Date, Time and Location Date Performed: 08/04/23 Time Performed: 09:43 Patient Location: Day Surgery Unit Vital Signs Most Recent Imported Vital Signs: Most Recent Vital Signs Temp Pulse Resp BP Pulse Ox 36.4 C L 84 16 134/105 H 97 08/04/23 09:34 08/04/23 09:34 08/04/23 09:34 08/04/23 09:34 08/04/23 09:34 Pain Score Most Recent Pain Score: Most Recent Pain Score Pain Level 0 08/04/23 09:34 Assessment Mental Status: Awake (Alert & Oriented to Patient Baseline) Airway and Respiratory Function: Patent airway with normal (patient baseline) respiratory exam Cardiovascular Function: Hemodynamically Stable Hydration Status: Adequately Hydrated Nausea & Vomiting: No Nausea or Vomiting Pain: Pt. Denies Any Pain Peripheral Nerve Block: Patient did not receive a nerve block
[2023-08-04 09:49] VITALS: BP 128/83; PULSE 87; RESP 16; TEMP 36.6; O2SAT 98
== END 2023-08-04 10:06 | disposition home or self-care (01) ==
LOC: SUR 08:18
PROVIDERS: PCP Family Medicine; Visit Provider Surgery
PROC: 0DJD8ZZ Inspection of Lower Intestinal Tract, Via Natural or Artificial Opening Endoscopic (ICD-10-PCS; CPT 45378; principal; 2023-08-04 09:30)
DX: Z12.11 Encounter for screening for malignant neoplasm of colon (principal); D12.4 Benign neoplasm of descending colon; K57.30 Diverticulosis of large intestine without perforation or abscess without bleeding; D12.5 Benign neoplasm of sigmoid colon
CPT/HCPCS: 45380; 88305; J2001; J2704

== ENCOUNTER → 2023-11-21 08:01 | Outpatient (BNVA) | payer MEDICARE, OTHER, SELFPAY | PROVIDERS: PCP Family Medicine; Visit Provider Nurse Practitioner Adult Health | DX: G43.009 Migraine without aura, not intractable, without status migrainosus (principal); R20.2 Paresthesia of skin | CPT/HCPCS: 99213 ==

== ENCOUNTER 2024-02-26 09:18 | Outpatient (REF) | payer MEDICARE, OTHER, SELFPAY ==
[2024-02-26 14:37] LABS: HCT 47.7 % (36.0-46.0); HGB 15.6 g/dL (11.2-15.7); MCH 28.6 pg (27.0-33.0); MCHC 32.7 % (32.0-36.0); MCV 88 fL (80-95); MPV 9.5 fL (8.0-11.0); Platelet Count 299 10^3/uL (130-400); RBC 5.45 10^6/uL (3.93-5.22); RDW 13.2 % (11.7-14.6); RDW-SD 42.4 fL; WBC 6.57 10^3/uL (4.4-10.8)
[2024-02-26 15:10] LABS: ALT 30 U/L (14-59); AST 21 U/L (15-37); Albumin 4.2 g/dL (3.4-5.0); Alkaline Phosphatase 104 U/L (46-116); Anion Gap 7.8 mmol/L (3-11); BUN 15 mg/dL (7-18); CO2 31.2 mmol/L (21.0-32.0); Calcium 9.4 mg/dL (8.5-10.1); Calculated LDL 93 mg/dL (<100); Chloride 104 mmol/L (98-107); Cholesterol 190 mg/dL (<200); Estimated GFR 60.61 (mL/min/1.73m2); Glucose 105 mg/dL (74-106); HDL Cholesterol 64 mg/dL (40-60); Potassium 4.6 mmol/L (3.5-5.1); Sodium 143 mmol/L (136-145); Triglyceride 168 mg/dL (<150)
== END 2024-02-26 09:19 | disposition home or self-care (01) ==
LOC: NCHCN 09:18
PROVIDERS: PCP Family Medicine; Visit Provider Family Medicine
DX: E78.5 Hyperlipidemia, unspecified (principal); M85.80 Other specified disorders of bone density and structure, unspecified site; I10 Essential (primary) hypertension; Z86.2 Personal history of diseases of the blood and blood-forming organs and certain disorders involving the immune mechanism
CPT/HCPCS: 80053; 80061; 82306; 85027

== ENCOUNTER 2024-07-31 02:10 | Outpatient (CLI) | payer MEDICARE, OTHER, SELFPAY ==
--- NOTE | 2024-07-31 | DI.MAMMO_ITS ---
Exam(s) MAMMO SCREENING EXAM: MAMMO SCREENING CLINICAL HISTORY: Screening, Z12.31 TECHNIQUE: Bilateral full field digital CC and MLO mammographic images were obtained with 3D tomosyn thesis and utilizing computer aided detection (CAD). COMPARISON: Available for comparison. FINDINGS: Masses/Architectural Distortion: There again seen findings of a left lumpectomy. No new masses or ar eas of architectural distortion are seen. Microcalcifications: No suspicious pleomorphic-type are seen. Skin Thickening/Nipple Retraction: None. IMPRESSION: 1. No significant interval change with no specific features of malignancy noted. 2. Unless there is more urgent need, screening mammography is recommended, as per [employer] guidelines. BI-RADS Category 2 - Benign Findings Breast Density - Category A - The breast are almost entirely fatty. Breast density category C or D implies that the patient has dense breast tissue. Dense breast tissue is very common and is not abnormal but dense breast tissue can make it harder to find cancer on a ma mmogram. Also, dense breast tissue may increase their breast cancer risk. This information about the result of the mammogram report was provided to the patient to raise their awareness. Use this report when you speak with the patient about their risks for breast cancer, which includes their family hist ory. At that time, you may recommend for more screening tests (Ultrasound or MRI) as they might be us eful based on their risk. A negative radiographic report should not delay biopsy if a dominant or clinically suspicious mass is present. Up to ten percent of cancers are not identified on mammography. A negative report may reinforce clinical impression. Adenosis and dense breasts may obscure an underlying neoplasm. False positive reports average 6 to 10%. Patient will receive a letter notifying them of these results.
== END 2024-07-31 02:30 ==
PROVIDERS: PCP Family Medicine; Visit Provider Family Medicine
DX: Z12.31 Encounter for screening mammogram for malignant neoplasm of breast (principal); R92.313 Mammographic fatty tissue density, bilateral breasts; D24.2 Benign neoplasm of left breast
CPT/HCPCS: 77063; 77067

== ENCOUNTER 2024-09-18 19:52 | Outpatient (REF) | payer MEDICARE, OTHER, SELFPAY ==
[2024-09-18 17:07] LABS: TSH (W/Ref FT4) 4.51 uIU/mL (0.36-3.74)
== END 2024-09-18 19:53 | disposition home or self-care (01) ==
LOC: NCHCN 19:52
PROVIDERS: PCP Family Medicine; Visit Provider Family Medicine
DX: E66.9 Obesity, unspecified (principal)
CPT/HCPCS: 84439; 84443

== ENCOUNTER → 2024-11-18 08:07 | Outpatient (BNVA) | payer MEDICARE, OTHER, SELFPAY | PROVIDERS: PCP Family Medicine; Referring Provider Family Medicine; Visit Provider Nurse Practitioner Adult Health | DX: G43.009 Migraine without aura, not intractable, without status migrainosus (principal) | CPT/HCPCS: 99213 ==

== ENCOUNTER 2025-03-11 10:58 | Outpatient (REF) | payer MEDICARE, OTHER, SELFPAY ==
[2025-03-11 15:52] LABS: ALT 24 U/L (10-49); AST 22 U/L (<34); Albumin 4.1 g/dL (3.2-5.0); Alkaline Phosphatase 85 U/L (46-116); Anion Gap 8.3 mmol/L (3-11); BUN 15 mg/dL (9-23); Bilirubin, Total 0.3 mg/dL (0.2-1.2); CO2 27.7 mmol/L (20.0-31.0); Calcium 9.2 mg/dL (8.3-10.6); Chloride 107 mmol/L (98-107); Glucose 92 mg/dL (74-106); Potassium 3.9 mmol/L (3.5-5.1); Sodium 143 mmol/L (136-145); Total Protein 6.4 g/dL (5.7-8.2)
[2025-03-11 15:54] LABS: TSH (W/Ref FT4) 3.51 uIU/mL (0.55-4.78)
== END 2025-03-11 10:59 | disposition home or self-care (01) ==
LOC: NCHCN 10:58
PROVIDERS: PCP Family Medicine; Visit Provider Family Medicine
DX: E03.8 Other specified hypothyroidism (principal); I10 Essential (primary) hypertension
CPT/HCPCS: 80053; 84443